=== PATIENT | female | born 2005 | race Caucasian/White ===

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

== ENCOUNTER → 2025-02-15 | Outpatient (CLI) | payer OTHER, SELFPAY ==
[2025-02-15 15:22] LABS: Bacteria 0 SEEN /hpf (None Seen); Mucous, Urine 0 SEEN /hpf (<or=2+)
[2025-02-15 16:52] LABS: Hematocrit 38.6 % (37-47); Hemoglobin 12.9 g/dL (12.0-15.0); Mean Corp Hgb Conc 33.4 g/dL (32-36); Mean Corpuscular Hgb 29.5 pg (27.0-32.0); Mean Corpuscular Volume 88.1 fL (81-99); Mean Platelet Vol. 9.9 fl (6.2-12.0); Platelet Count 302 K/mm3 (150-450); RBC Distribution Width CV 11.9 % (11.6-14.6); RBC Distribution Width SD 38.5 fl (35.1-43.9); Red Blood Count 4.38 M/mm3 (4.2-5.4); White Blood Count 5.3 K/mm3 (4.4-11.0)
[2025-02-15 16:59] LABS: Color, Urine Straw (Yellow); Glucose, Dipstick Normal (Normal); Ketone-Dipstick Negative (Negative); Leukocyte Esterase-Dipstick Negative /ul (Negative); Nitrite-Dipstick Negative (Negative); Occult Blood-Urine 25 /ul (Negative); Protein-Dipstick Negative (Negative); Urine Bilirubin Dipstick Negative (Negative); Urine Clarity Clear (Clear); Urine Urobilinogen Normal (Normal)
[2025-02-15 17:17] LABS: Hemoglobin A1c 4.9 % (<=5.6)
[2025-02-15 17:43] LABS: Red Blood Cells-Urine 0-5 SEEN /hpf (0-5); Squamous Epithelial Cells - UA 0-5 SEEN /hpf (5-10); White Blood Cells 0-5 SEEN /hpf (0-5)
[2025-02-15 17:46] LABS: ALB/GLOB Ratio 1.4 RATIO (0.9-2.4); AST(SGOT) 16 U/L (<=31); Alanine Aminotransfer ALT/SGPT 14 U/L (<=34); Albumin, Serum 4.2 g/dL (3.5-5.0); Alkaline Phosphatase 61 U/L (35-104); Anion Gap 12 (5-15); BUN 6 mg/dL (4-19); BUN/Creat Ratio 9.7 RATIO (10-20); Carbon Dioxide 18.8 mmol/L (21.0-32.0); Chloride 107 mmol/L (98-108); Creatinine, Serum 0.63 mg/dL (0.70-1.20); EST Glomerular Filtration Rate 131 (>60); Ferritin 32 ng/mL (22-378); Globulin 3.1 g/dL (2.2-4.2); Glucose 127 mg/dL (70-99); Potassium 3.7 mmol/L (3.3-5.1); Protein, Total 7.2 g/dL (5.9-8.4); Sodium Level 138 mmol/L (133-145); Thyroid Stim Hormone (TSH) 0.931 uIU/mL (0.500-4.300)
[2025-02-15 18:20] LABS: CRP 5.19 mg/L (0.0-3.0); Iron 67 ug/dL (50-170); Iron Binding Capacity,Total 381 ug/dL (250-450); Iron Binding Capacity,Unsat 314 ug/dL (228-428); Lipase 30 U/L (13-75)
[2025-02-15 18:26] LABS: Prothrombin Time (Protime)PT. 13.8 SECONDS (11.7-14.9)
[2025-02-19 15:08] LABS: Anti-Smooth Muscle ABS 32 Units (0-19)
== END | disposition home or self-care (01) ==
LOC: LAB 15:15
PROVIDERS: PCP Family Medicine; Referring Provider Family Medicine; Visit Provider Family Medicine
DX: R10.9 Unspecified abdominal pain (principal); K76.0 Fatty (change of) liver, not elsewhere classified
CPT/HCPCS: 36415; 80053; 81001; 82728; 83036; 83516; 83540; 83550; 83690; 84443; 85027; 85610; 86140

== ENCOUNTER → 2025-04-02 | Outpatient (CLI) | payer OTHER, SELFPAY | END | disposition home or self-care (01) | LOC: LABSPEC 16:24 | PROVIDERS: PCP Family Medicine; Visit Provider Nurse Practitioner Family | DX: N89.8 Other specified noninflammatory disorders of vagina (principal) | CPT/HCPCS: 87070; 87205 ==

== ENCOUNTER 2025-05-01 08:00 | Outpatient (RCR) | payer OTHER, SELFPAY ==
--- NOTE | 2025-05-01 09:05 | BH.SGPN.GN ---
Behaviors/Verbalizations/Mental Status: [] Eye contact is good. Motor activity is appropriate. Appearance is casual. Speech is Appropriate. Mood is depressed and anxious. Affect is full. Thoughts are linear and logical. No evidence of psychosis. Reviewed daily check in sheet and no reports of suicidal ideations or intent. Client Response/Progress/Benefit: [] Pt participated at times during the group discussions. Attentive. Able to identify mental health wins and healthy habits. Shared with the group that she ?drove for the first time?. 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 She elaborated on her anxiety related driving in greater detail and the motivation for her to seek her license currently. Overall her anxiety and depression continue to impact her functioning, however starting to drive is a big win for her. Benefited from group support, encouragement, and feedback. Will continue in IOP to prevent decompensation, increase healthy coping, and improve functioning. Narrative Note: []
--- NOTE | 2025-05-01 10:05 | BH.SGPN.GN ---
Behaviors/Verbalizations/Mental Status: [] Eye contact is good. Motor activity is appropriate. Appearance is casual. Speech is Appropriate. Mood is depressed and anxious. Affect is congruent. Thoughts are linear and logical. No evidence of psychosis. Client Response/Progress/Benefit: [] Pt participated in the group discussions AEB providing input and taking notes. Attentive during psychoeducation on SMART Goal Setting. Pt worked with group to identify common barriers to goal setting which included; mental health struggles, energy/motivation, limited support, change to routine, lack or resources, having unrealistic goals, and our internal expectations. Group also identified benefits of goals, which included: promotes a sense of accomplishment, it challenges oneself, can boast confidence, and can cause positive change/growth. Pt identified personal benefits to goal setting which included increased sense of self-worth. Benefited from increased awareness of mental health benefits of goals as well as psychoeducation on SMART goal criteria. Will continue in IOP to prevent decompensation/re-admission to psych unit, increase healthy coping, and improve functioning. Narrative Note: []
--- NOTE | 2025-05-01 10:30 | BH.COMM_ITS ---
Communication Note Communication with Client Communication Note: Met with patient to complete initial paperwork for admission to [facility]. No significant changes since pre-admission screening. Completed C-SSRS. No imminent danger noted. Long-standing fleeting SI with passive thoughts of overdose since middle school. Denies any SI in the past month and reports thoughts are more survival ambivalence. Shared she is afraid of dying. Thoughts last less than an hour. Able to identify protective factors (parents, ). Denies intent or plan. No access to firearms reported. Able to contract for safety. Is aware of crisis numbers. No acute change in frequency, duration, or severity of thoughts in the past year. Medication compliant. Motivated for treatment. Hx of Major Depressive Disorder. Reviewed admission with Dr. Yin with plan to admit to [facility] level of care.
--- NOTE | 2025-05-01 10:48 | BH.MDN ---
Multi-Disciplinary Note Note 30-min Individual: Time Started:: 09:08 Date: 05/01/25 Purpose of session/treatment goals addressed:: To gather information on pt's current stressors, symptoms, triggers, history, and tx goals. Another goal was to build rapport and provide Eye Contact:: Good Motor Activity:: Appropriate Appearance:: Casual Speech:: Appropriate and Soft Mood:: Anxious and Depressed Affect:: Congruent Thoughts:: Linear, Logical and No evidence of hallucinations/delusions noted Staff Interventions:: motivational interviewing, CBT techniques, strengths perspective, completed risk assessment / safety planning (cssr-s) and other (gathering psychosocial hx) Client Response:: Pt receptive to session, open to meeting with therapist. Pt reports feeling anxious about the group environment as she has not previously been in a group therapy setting. Reports that she has had individual counseling off and on since 7th grade due to depression and anxiety. Pt noted that she did not find counseling to be particularly beneficial in the past and felt she was wasting her time. Does admit that she was inconsistent with attendance and less open with therapists in the past. Reports that she is willing to give therapy another try though is somewhat hesitant given past experiences in tx. Pt noted that she has been struggling with depression and anxiety sx more in the past year and a half since leaving high school. Explained that she had been attending the [employer]; however had difficulties in making friends and feeling like she fit in, resulting in withdrawing and moving back home with her parents. Pt reports she has not kept in contact with friends from high school outside of her now . Pt has been 1.5 years and noted that she lives in an apartment with her while he attends College and they both stay with her parents during breaks. Pt noted that she felt she had been doing a good job of ?masking? her depression; however was recently approached by her mother with concerns about her mental health and referred to [facility] tx. Does endorse loss of enjoyment, apathy, hopelessness, low energy and motivation, purposelessness, ruminating thoughts and fears that ?the worst is always going to happen?, as well as increase sleeping. Pt is unsure of what exactly she would like to work on but did briefly mention improving self-esteem and general sense of purpose. Risks/Concerns:: Pt reports ambivalence towards living but denies active SI, plan, or intent. Pt future oriented and indicates protective factors. Progress Toward Goals/Plan:: Pt's 1st day of IOP tx and pt reports feeling unsure but willing to give treatment a try. Pt shared she is hoping to learn how to find a sense of purpose again. Pt plans to attend IOP three days a week. Pt's endorses apathy, loss of motivation, anhedonia, passive SI with vague thoughts of methods, worthlessness, hopelessness, isolation, and negative self-talk. Pt will continue IOP tx to prevent decompensation and maintain safety, improve daily functioning, and gain healthy coping skills. Time Stopped:: 09:26
--- NOTE | 2025-05-01 10:53 | BH.PSA ---
Development & Family of Origin Family History Family History Grandmother Breast cancer Aunt Breast cancer
--- NOTE | 2025-05-01 11:05 | BH.SGPN.GN ---
Behaviors/Verbalizations/Mental Status: [] Pt alert and oriented. Appearance is casual, hygiene is appropriate. Eye contact fair. Motor activity appropriate. Speech within normal limits. Affect is anxious. Mood is constricted. Thoughts linear, logical, no signs of hallucinations or delusions. Client Response/Progress/Benefit: [] Pt was engaged during discussion and experiential activity. Completed the worksheet challenging them to develop a personal SMART goal. Pt chose a SMART goal to I will get at least 6,000 steps a day at least 5 days a week for the next week. Believes this goal will benefit them by getting outside and moving their body. Identified obstacles such as feeling too tired, being too hot outside, and not feeling good. Pt worked to identify potential strategies to help her overcome potential barriers. Benefited from this group by developing a short-term SMART goal related to mental health. Will continue IOP to prevent decompensation, improve distress tolerance, and promote healthy coping.
--- NOTE | 2025-05-02 09:02 | BH.SGPN.GN ---
Behaviors/Verbalizations/Mental Status: [] Client alert and oriented, casual appearance. Eye contact good. Motor activity appropriate. Speech within normal limits. Affect congruent, mood irritable. Thoughts linear, logical, no signs of hallucinations or delusions. Reviewed client's symptom tracker, client scored a 2 out of 5 with 5 being severe for suicidal thoughts and a 1 out of 5 for risk to suicide. Client denies active suicidal ideation and reports ability to keep herself safe. Client Response/Progress/Benefit: [] Client responded well to session AEB listening to others and sharing thoughts/feelings. Per daily symptom tracker client's scored a 5 out of 5 for depression and a 2 out of 5 for anxiety. Client reported mental positive as having a positive first day in IOP yesterday. Client noted additional months of positive as utilizing opposite action yesterday. Client noted current stressor as having to deal with her [id number] who in her opinion can be challenging to deal with because he often does not respect boundaries and is not nice. Appeared to benefit from support from peers. Will continue IOP tx to improve distress tolerance, challenge negative thoughts, and prevent decompensation. Narrative Note: []
--- NOTE | 2025-05-02 09:10 | BH.NA ---
Physical Data Height/Weight Height: 5 ft 7 in Weight:: 68.039 kg Weight in Pounds: 150.0 lbs Medical Problems/History Family History Family History Grandmother Breast cancer Aunt Breast cancer Nutritional Screen Height/Weight Height: 5 ft 7 in Weight:: 68.039 kg Weight in Pounds: 150.0 lbs Weight Measurement Method: Estimated by Patient Nutrition Screening Normal Weight: 170 kg Normal/Usual Weight in Pounds: 374.8 lbs Have you lost weight without trying: Yes Have you been eating poorly because of a decreased appetite: No Recently been on tube feeds, TPN, or have any nutritional access device in place: No Have any large open wounds or wounds that are not healing: No Calculated Weight Change: [phone] Change in weight Score: 4 MST Screening Tool Score: 6
--- NOTE | 2025-05-02 10:15 | BH.SGPN.GN ---
Behaviors/Verbalizations/Mental Status: []Client alert and oriented, casually dressed. Eye contact good. Motor activity appropriate. Speech within normal limits. Affect congruent, mood engaged. Thoughts linear, logical, no signs of hallucinations or delusions. Client Response/Progress/Benefit: [] Pt was an active participant AEB taking notes and engaging in group activity. Connected with the topic of pitfalls and listened to group discussion on barriers that prevent from choosing a healthier path to mental wellness. Group worked together to identify examples of personal pitfalls. These examples included; shutting down, not asking for help, negative thinking patterns, avoidance, and isolation. Pt did well in the experiential activity and was able to regulate stress in healthy ways. Pt benefited from group as Pt learned to better identify potential barriers to improving mental health symptoms. Identified personal barrier of lack of motivation and making excuses. Pt will continue IOP tx to prevent decompensation, gain healthy coping skills, and improve daily functioning. Narrative Note: []
--- NOTE | 2025-05-02 11:15 | BH.SGPN.GN ---
Behaviors/Verbalizations/Mental Status: []Client alert and oriented, casually dressed and groomed. Eye contact good. Motor activity appropriate. Speech within normal limits. Affect congruent, mood depressed and anxious. Thoughts linear, logical, no signs of hallucinations or delusions. Client Response/Progress/Benefit: [] Pt receptive of session, engaged throughout AEB Pt actively listening and contributing to discussion as well as taking notes.? Pt participated in the experiential activity and did well to communicate ideas with peers and manage emotions. Pt attentive as group processed how the emotions and perspective of the group impacted the activity. Pt admitted that she wanted to give up due to impatience, but pt was able to complete the activity with peers. Group worked together to identify different coping skills to help manage pitfalls. Pt identified a pitfall they struggle with as ?negative self-talk?. Pt plans to work on their pitfall by practicing positive affirmations and perspective challenging. Benefited from identifying personal pitfalls and strategies to overcome these pitfalls. Pt will continue IOP tx to prevent decompensation, improve daily functioning, and increase coping skill repertoire. ? Narrative Note: []
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
--- NOTE | 2025-05-03 08:12 | BH.PSY.EVA_ITS ---
Initial Treatment Plan Patient Information Visit Information: ADMISSION DATE: EXPECTED LOS: 4-6 weeks
--- NOTE | 2025-05-03 08:12 | BH.DR.ITP ---
Initial Treatment Plan Patient Information Visit Information: ADMISSION DATE: EXPECTED LOS: 6-8 weeks Diagnoses:: MDD, anx nos Problems/Symptoms Problem #1:: MDD Symptom:: Intermittent thoughts of hurting self, depressed mood, anhedonia, poor energy, excessive spit sleep, crying spells Problem #2:: Anxiety Symptom:: Primarily sense of impending doom and worrying that she will be murdered or that something terrible happen
--- NOTE | 2025-05-03 08:15 | BH.NA_ITS ---
Physical Data Vital Signs Pulse Rate: 94 Blood Pressure: 150/82 Height/Weight Height: 1.75 m Weight:: 90.718 kg Weight in Pounds: 200.0 lbs Current Medication Compliance Medication Compliance Do you take your medication as prescribed?: Yes Functional Assessment Sleep Pattern Describe any problems with sleeping: Client states she had been sleeping 11 hours per day, but the last couple of days has been 8 hours. Sensory/Communication Assess Communication Problems Do you have difficulty understanding what people are saying?: No Learning Assessment Education What is your level of education?: Some College Medical Problems/History Metabolic Conditions Metabolic: Other (See comments) (Crispin's thyroiditis, PCOS) Gastrointestinal Conditions Gastrointestinal: Constipation and Other (See comments) (abdominal pain accompanied by nausea ongoing since 2020- has seen GI, on some GI medications, is having a scope done in May.) Family History Family History Grandmother Breast cancer Aunt Breast cancer Surgical History Surgical History Have you had any surgeries? If so, list type and date:: No Substance Abuse Substance Abuse Please describe substance abuse in the last 30 days:: Client denies alcohol, tobacco or substance use. Client denies regular caffeine use. Mental Status Summary Mental Status Significant Findings/Observations on Appearance and Mood:: Client is alert and oriented x 4. Client is casually groomed with good hygiene. Client is cooperative with assessment. Client makes fair eye contact. Client's voice has normal rate and volume. Client has a restricted affect. Client makes logical associations and has normal processing. Client denies delusion/hallucinations. Client denies SI. Suicide Assessment Suicidal Ideation Are you currently or have you been suicidal in the past?: Yes Suicidal Intentional Rating Scale (SIRS): Suicidal thoughts (past) (denies current SI) Physician Notification Past Psychiatric History MH Treatment Hx Past Psychiatric Medications:: 2018- Prozac, 2019- Lexapro (rapid weight gain), 2020- Zoloft. 2022- Wellbutrin. 2024- Cymbalta. Age of first mental health symptoms: Client states she first felt depressed around age 11. Client first started medication for mental health in 2018, around age 13. Client states in 2019, she was told she had avoidant personality disorder. In 2022, a provider told her she may have adjustment disorder. Describe (age, circumstance, etc) any past hospitalizations: Went to the [facility] in July 2021 for mental health but was not admitted. Current providers for mental health treatment (counselor, psychiatrist, heel caser, etc.): Linh Andrade at [facility] for therapy Fall Risk Assessment Age Age: Less than 60 Mental Status Mental Status: Willing & able to ask for assistance when needed Physical Status Physical Status: No problems Impairments Impairments: None Elimination Elimination: Continent AND independent Gait or Balance Gait or Balance: Walks independently Hx of Falls History of falls in the past 6 months: No known history Medications/Substances Psychotropics:: Antidepressants Medications/substances used within the past 24 hours or ordered to administer: 1-2 of the medications/substances listed above Total Score Total Points:: 1 RN Summary of Impressions Impressions Recommendations Impressions: Psychiatric Issues: major depressive disorder, generalized anxiety disorder Level of Care How do the client's current symptoms and functional deficits support need for this level of care?: Client was referred to IOP by her parents due to being concerned about clients mental health. Client states for the past several months, her mood has been low, she had had anhedonia, she has been having crying spells, and she has been sleeping 11 or more hours per day. Client states I thought I was doing an okay job pretending I was doing okay, but my parents and my knew I was depressed. Client denies current SI. Client states she has been on Cymbalta since February 2025 per her GI's recommendation for abdominal pain, and states she does think it is helping some with pain but states she thinks her mental health has gotten worse since she was taken off of Wellbutrin and Lexapro. IOP will promote gains and prevent further decompensation while providing social support and skills training. Nutritional Screen Height/Weight Height: 1.75 m Weight:: 90.718 kg Weight in Pounds: 200.0 lbs Weight Measurement Method: Stated by Patient Nutrition Screening Normal Weight: 86.183 kg Normal/Usual Weight in Pounds: 190.0 lbs Have you lost weight without trying: No Have you been eating poorly because of a decreased appetite: No Recently been on tube feeds, TPN, or have any nutritional access device in place: No Have any large open wounds or wounds that are not healing: No Calculated Weight Change: [id number] Change in weight Score: 1 MST Screening Tool Score: 1
[2025-05-03 08:43] VITALS: BP 150/82; PULSE 94
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
--- NOTE | 2025-05-03 10:04 | BH.SGPN.GN ---
Behaviors/Verbalizations/Mental Status: [] Eye contact is good. Motor activity is appropriate. Appearance is casual. Speech is Appropriate. Mood is depressed. Affect is congruent. Thoughts are linear and logical. No evidence of psychosis. Client Response/Progress/Benefit: [] Pt engaged participant AEB listening to others, engaging in activity, and providing feedback throughout. Attentive during psychoeducation and provided insight into obstacles that impede mental wellness. Pt shared with group current mental health reality and desired mental health reality. Identified barriers to desired reality which included difficulties with communicating boundaries and low motivation. Benefited from taking look at current mental health state and obstacles for progress. Pt to d/c from IOP today and continue IOP tx to prevent decompensation, stabilize mood, and improve functioning. Narrative Note: []
--- NOTE | 2025-05-03 11:00 | BH.SGPN.GN ---
Behaviors/Verbalizations/Mental Status: []Eye contact is good. Motor activity is appropriate. Appearance is casual. Speech is Appropriate. Mood is dysthymic. Affect is congruent. Thoughts are linear and logical. No evidence of psychosis. Client Response/Progress/Benefit: [] Pt was an engaged participant in group discussion and activity. Worked with group to identify strategies to help overcome barriers and obstacles to desired reality. Group developed strategies for the common barriers. Identified personal barriers to desired reality and choose one obstacle to work on. Pt stated wanting to work on barrier of not asking for help by using opposite action and starting with trusted people. Pt seemed to benefit from increased repertoire of healthy coping skills/strategies to overcome common barriers to moving forward. Pt is to continue IOP increase functioning, gain healthy coping skills, and improve mood stability. Narrative Note: []
--- NOTE | 2025-05-06 09:05 | BH.SGPN.GN ---
Behaviors/Verbalizations/Mental Status: [] Eye contact is good. Motor activity is appropriate. Appearance is casual. Speech is Appropriate. Mood is anxious. Affect is congruent. Thoughts are linear and logical. No evidence of psychosis. Reviewed daily check in sheet and no reports of suicidal ideations or intent. Client Response/Progress/Benefit: [] Pt participated at times during the group discussions. Attentive. Able to identify healthy habits and mental health wins. 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 Insight that this is ?good? anxiety Identified other psychosocial stressors which are impacting mood as well as continued isolation/avoidance behaviors. Reports feeling ? tired and gloomy?. Progress noted through exposure goals. Benefited from group support, encouragement, and feedback. Will continue in IOP to prevent decompensation, increase healthy coping, and improve functioning Narrative Note: []
--- NOTE | 2025-05-06 10:05 | BH.SGPN.GN ---
Behaviors/Verbalizations/Mental Status: []Pt alert and oriented, casually dressed and groomed. Eye contact good. Motor activity appropriate. Speech within normal limits. Affect congruent, mood engaged. Thoughts linear, logical, no signs of hallucinations or delusions. Client Response/Progress/Benefit: [] Pt receptive to session AEB contributing to group discussion, as well as listening attentively to others, and taking notes. Worked with group to brainstorm the positive and negative aspects of stress on physical and mental health as well as the impact of distress on performance, relationships, and mental health. Pt shared their current personal top stressors to be: driving, money, IOP, and her responsibilities. Shared when feeling overwhelmed with stress pt tends to shut down or lash out. Benefited from increased awareness of positive and negative stress as well as how stress impact individuals. Will continue IOP tx to prevent decompensation, improve daily functioning, and gain healthy coping skills. ?? Narrative Note: []
--- NOTE | 2025-05-06 11:10 | BH.SGPN.GN ---
Behaviors/Verbalizations/Mental Status: []Eye contact is fair. Motor activity is appropriate. Appearance is casual. Speech is Appropriate. Mood is anxious. Affect is congruent. Thoughts are linear and logical. No evidence of psychosis. Client Response/Progress/Benefit: [] Pt was an attentive participant in group discussions and actively engaged during experiential activity, doing well to regulate their emotions throughout the activity and work with peers. Attentive during psychoeducation on the 4 A's (Avoid, adapt, alter, accept) of coping with stress. Shared that they would benefit most from practicing altering perspective by changing language to I get to instead of I have to. Was able to identify the connection between the experiential activity and utilization of stress management skills. Benefited from increased awareness of stress management strategies. Pt will continue IOP to improve healhty coping, challenge distortions, and prevent decompensation.
--- NOTE | 2025-05-08 09:05 | BH.SGPN.GN ---
Behaviors/Verbalizations/Mental Status: [] Eye contact is good. Motor activity is appropriate. Appearance is casual. Speech is Appropriate. Mood is depressed and anxious. Affect is congruent. Thoughts are linear and logical. No evidence of psychosis. Reviewed daily check in sheet and pt reports 1/5 for suicidal thoughts/survival ambivalence and 0/5 for intent. Baseline. Client Response/Progress/Benefit: [] Pt was an active participant in group discussions. Attentive. Daily symptom tracker notes 4/5 for depression. 2/5 for anxiety. According to pt she completed her ?SMART goal? from group last week which was to walk 6,000 steps a day. Elaborated on how this was beneficial to her mental health. Increased energy and motivation. She is struggling with psychosocial stressors which are impacting mental health which she discussed in greater detail. Progress noted. Benefited from group support, encouragement, and feedback. Will continue in IOP to prevent decompensation, increase healthy coping, and improve functioning. Narrative Note: []
--- NOTE | 2025-05-08 10:10 | BH.SGPN.GN ---
Behaviors/Verbalizations/Mental Status: []Pt alert and oriented, casually dressed and groomed. Eye contact good. Motor activity appropriate. Speech within normal limits. Affect congruent, mood depressed. Thoughts linear, logical, no signs of hallucinations or delusions. Client Response/Progress/Benefit: [] Pt participated during the group discussion, providing input and remaining attentive during psychoeducation. Participated in experiential activity. Pt contributed during interactive discussion on the consequences of unhealthy expression of emotions. Worked with group to identify several consequences which included hurting relationships and isolating oneself. Contributing during interactive discussion on common potholes to effectively communicating. Identified personal communication pothole as avoiding difficult conversations. Pt was able to relate and make connections between the experiential activity and the overall topic, managing emotions through activity by using calming skills and self-talk. Benefited from increased awareness of how stress and emotions can impact one's ability to communicate. Will continue in IOP to promote use of healthy coping skills, reduce negative thinking patterns, and improve mood stability. Narrative Note: []
--- NOTE | 2025-05-10 09:00 | BH.SGPN.GN ---
Behaviors/Verbalizations/Mental Status: [] Client alert and oriented, casual appearance. Eye contact fair. Motor activity appropriate. Speech within normal limits. Affect congruent, mood tired. Thoughts linear, logical, no signs of hallucinations or delusions. Reviewed client's symptom tracker, no risk for suicidal ideation, plan, or intent. Client Response/Progress/Benefit: [] Client responded well to session AEB listening to others and sharing thoughts/feelings. Identify current stressor as not feeling well explaining that she has chronic stomach issues. Client reported mental positive as her got home today after traveling however does feel little frustrated because he might be leaving again to go somewhere with his father. Client noted additional meth positive as her [id number] was nice to her the other day. Client noted current emotion as wiped out and exhausted. Appeared to benefit from support from peers. Will continue IOP tx to improve distress tolerance, challenge distortions, and prevent decompensation. Narrative Note: []
--- NOTE | 2025-05-10 10:00 | BH.SGPN.GN ---
Behaviors/Verbalizations/Mental Status: []Pt alert and oriented, casually dressed and groomed. Eye contact good. Motor activity appropriate. Speech within normal limits. Affect congruent, mood dysthymic. Thoughts linear, logical, no signs of hallucinations or delusions. Client Response/Progress/Benefit: [] Pt was an active participant in group discussions. Attentive during psychoeducation on the CBT [place] (Thoughts, Behaviors, Emotions). Engaged in group discussion on how thoughts and behaviors can contribute to maintaining adverse feelings, such as depression, anxiety, and irritability. Completed worksheet in which pt identified obstacles and/or thoughts that are keeping them stuck. Shared obstacles that included; not feeling good enough and not trying when things get hard. Pt benefited from increased awareness of the basis of CBT therapy as well as specific thoughts that are impacting pt's progress. Will continue in IOP to promote use of healthy coping skills, improve daily functioning, and increase distress tolerance. ? Narrative Note: []
--- NOTE | 2025-05-10 11:00 | BH.SGPN.GN ---
Behaviors/Verbalizations/Mental Status: []Pt alert and oriented, casually dressed and groomed. Eye contact good. Motor activity appropriate. Speech within normal limits. Affect congruent, mood anxious and depressed. Thoughts linear, logical, no signs of hallucinations or delusions. Client Response/Progress/Benefit: [] Pt responded well to session, contributing to discussion and attentive throughout. Pt identified a negative thought that has kept them stuck. Pt's thought was I'm not good enough?. Pt reported when they think this way, pt isolates, lashes out, or shuts down. Pt worked to reframe the thought by finding more rational, realistic ways to look at the thoughts and then processed them within group setting. Pt reframed the thought to ?I have worth and value as I am?. Pt appeared to benefit from practicing challenging negative thinking with peers and gaining coping skills. Pt will continue IOP tx to promote mood stability, increase thought challenging, and further increase self-compassion. Narrative Note: [] Behaviors/Verbalizations/Mental Status: []Pt alert and oriented, casually dressed and groomed. Eye contact good. Motor activity appropriate. Speech within normal limits. Affect congruent, mood anxious and depressed. Thoughts linear, logical, no signs of hallucinations or delusions. Client Response/Progress/Benefit: [] Pt responded well to session, contributing to discussion and attentive throughout. Pt identified a negative thought that has kept them stuck. Pt's thought was I'm not good enough?. Pt reported when they think this way, pt isolates, lashes out, or shuts down. Pt worked to reframe the thought by finding more rational, realistic ways to look at the thoughts and then processed them within group setting. Pt reframed the thought to ?I have worth and value as I am?. Pt appeared to benefit from practicing challenging negative thinking with peers and gaining coping skills. Pt will continue IOP tx to promote mood stability, increase thought challenging, and further increase self-compassion. Narrative Note: []
--- NOTE | 2025-05-14 09:05 | BH.SGPN.GN ---
Behaviors/Verbalizations/Mental Status: [] Eye contact is good. Motor activity is appropriate. Appearance is casual. Speech is Appropriate. Mood is depressed and irritable. Affect is congruent. Thoughts are linear and logical. No evidence of psychosis. Reviewed daily check in sheet and pt reports 2/5 for SI/not wanting to exist and 0/5 for intent. This is baseline. Client Response/Progress/Benefit: [] Pt was an active participant in group discussions. Attentive during video on mindfulness. Daily symptom tracker notes 4/5 for depression and irritability. SI-2. Reports feeling ?frustrated? this morning as the result of not enjoying her walk this morning. Several environmental triggers led to irritability and frustration. ? It wasn?t what I was expecting?. Low frustration tolerance. Also reports an intrusive thought over the weekend while at a social event. ?what if someone shoots this up?. Put her ?on edge? and impacted her ability to be present during the event. Progress noted as she is attempting skills such as reframing/challenging. Benefited from group support, encouragement, and feedback. Will continue in IOP to prevent decompensation, increase healthy coping, and improve functioning. Narrative Note: []
--- NOTE | 2025-05-14 10:10 | BH.SGPN.GN ---
Behaviors/Verbalizations/Mental Status: []Pt alert and oriented, casual appearance. Eye contact fair. Motor activity appropriate. Speech within normal limits. Affect congruent, mood euthymic. Thoughts linear, logical, no signs of hallucinations or delusions. Client Response/Progress/Benefit: [] Pt an active participant in group discussions on defining conflict (internal/external) and possible benefits to conflict. Attentive during psychoeducation on conflict styles (avoidant, accommodating, competing, cooperative) and engaged during group discussion in which peers identified the benefits and consequences to each conflict style. Pt connected with the different conflict styles. Stated she connects most with using passive and passive-aggressive communication. Able to make connections how current style impacts mental health. Benefited from increased awareness of the impact of conflict styles in mental health. Will continue in IOP tx to increase healthy coping, challenge distorted thoughts, and prevent decompensation.
--- NOTE | 2025-05-14 11:10 | BH.SGPN.GN ---
Behaviors/Verbalizations/Mental Status: []Client alert and oriented, casually dressed and groomed. Eye contact fair. Motor activity appropriate. Speech within normal limits. Affect congruent, mood dysthymic. Thoughts linear, logical, no signs of hallucinations or delusions. Client Response/Progress/Benefit: [] Pt engaged in session AEB contributing to discussion and engaging in small group. Attentive during discussion on strategies for more effectively managing conflict in personal life. Pt noted current conflict resolution style uses the most is ?mostly accommodating that leads to avoiding.? Pt participated in small group for activity and did well practicing how to manage conflict scenarios. Pt given handout on conflict resolution skills and shared he wants to work on ?using I-statements.? Appeared to benefit from gaining strategies to help Pt better manage conflict. Will continue IOP tx improve distress tolerance, increase internal motivation, and improve daily functioning. Narrative Note: []
--- NOTE | 2025-05-15 09:05 | BH.SGPN.GN ---
Behaviors/Verbalizations/Mental Status: [] Eye contact is good. Motor activity is appropriate. Appearance is disheveled. Speech is Appropriate. Mood is depressed and irritable. Affect is congruent. Thoughts are linear and logical. No evidence of psychosis. Reviewed daily check in sheet and no reports of suicidal ideations or intent. Client Response/Progress/Benefit: [] Pt participated at times during the group discussions. Attentive. Daily symptom tracker notes 4/5 for depression and agitation as well as 3/5 for anxiety. Pt struggled to identify mental health wins and healthy habits. Reports feeling ?stressed and overwhelmed?. No trigger or ?reason? identified. Emotion for today is ?irritable?. Limited progress noted. Benefited from group support, encouragement, and feedback. Will continue in IOP to prevent decompensation, increase healthy coping, and improve functioning. Narrative Note: []
--- NOTE | 2025-05-15 10:15 | BH.SGPN.GN ---
Behaviors/Verbalizations/Mental Status: []Eye contact is good. Motor activity is appropriate. Appearance is casual. Speech is Appropriate. Mood is engaged. Affect is congruent. Thoughts are linear and logical. No evidence of psychosis. Client Response/Progress/Benefit: [] Pt receptive to session AEB listening attentively to others and taking notes. Pt attentive and contributed throughout psychoeducation on the cognitive triangle and maintenance cycles. Pt engaged during group discussion reviewing the impact of daily activities and behaviors in either reinforcing unhealthy maintenance cycles and depression or assisting in reducing symptoms (?down? vs ?up? activities). Pt participated during interactive discussion in which pt identified their own common up activities (being creative and talking with support) and down activities (isolating, doom scrolling, and not practicing self-care). Appeared to benefit from increased awareness of current behaviors and impact these have on mental health. Will continue IOP to increase distress tolerance, improve daily functioning, and improve internal motivation. Narrative Note: []
--- NOTE | 2025-05-15 11:15 | BH.SGPN.GN ---
Behaviors/Verbalizations/Mental Status: []Pt alert and oriented, casually dressed and groomed. Eye contact fair. Motor activity appropriate. Speech within normal limits. Affect congruent, mood euthymic. Thoughts linear, logical, no signs of hallucinations or delusions. Client Response/Progress/Benefit: [] Pt responded well to session, attentive and engaged in group discussions and activity. Actively engaged in continued discussion about up activities and down activities. Active participant as group discussed values and the benefits that knowing one's values can have on one's mental health. Client shared she would like to focus on strengthening her value of hobbies/recreation by using opposite action to sew within the next week. Benefited from increased awareness of their up activities and how incorporating their values into behavioral activation goals can positively impact mental health. Will continue in IOP to challenge distortions, promote use of healthy coping skills, and prevent decompensation.
--- NOTE | 2025-05-16 10:10 | BH.SGPN.GN ---
Behaviors/Verbalizations/Mental Status: [] Eye contact is fair. Motor activity is appropriate. Appearance is casual. Speech is Appropriate. Mood is euthymic. Affect is congruent. Thoughts are linear and logical. No evidence of psychosis. Client Response/Progress/Benefit: [] Pt engaged in session AEB listening attentively to others and providing input throughout. Pt engaged in activity, able to connect how it can be uncomfortable and difficult to practice acceptance when situations are out of one?s own control. Identified what they are struggling to accept in personal life. Worked with peer group to define acceptance and identify the benefits that acceptance can bring. Benefits included; reduce stuckness, reduced stress, helps one to focus on situations we can change, and decreased negative self-talk. Seemed to benefit from increased awareness of the meaning as well as the importance of acceptance. Will continue in IOP to improve emotion regulation, challenge distortions, and prevent decompensation.
--- NOTE | 2025-05-16 11:15 | BH.SGPN.GN ---
Behaviors/Verbalizations/Mental Status: []Pt alert and oriented, casually dressed and groomed. Eye contact good. Motor activity appropriate. Speech within normal limits. Affect congruent, mood content. Thoughts linear, logical, no signs of hallucinations or delusions. Client Response/Progress/Benefit: [] Pt responded well to session AEB taking notes and contributing to discussion throughout. Pt engaged as group continued discussion on acceptance and the mental health benefits of practicing acceptance. Pt and peers identified what makes acceptance challenging and pt completed a self-reflection exercise on what is hard to accept in pt's life. Pt identified something that is currently hard to accept as her [id number] being a permanent part of her life. Client stated by not accepting this it leads to anxiety, anger, and stress. Group identified strategies to increase acceptance. Pt noted wanting to work on trying to find ways to challenge her perspective as a strategy for improving acceptance in this area. Pt appeared to benefit from gaining insight and learning strategies to increase acceptance. Pt will continue IOP tx to improve view of self, increase mood stability, and prevent decompensation. Narrative Note: []
--- NOTE | 2025-05-16 15:29 | BH.MDN ---
Multi-Disciplinary Note Note 30-min Individual: Time Started:: 09:15 Date: 05/16/25 Purpose of session/treatment goals addressed:: To address current stressors and discuss strategies to help cope with these stressors. Another goal was to review homework and begin discussing healthy communication skills. Eye Contact:: Good Motor Activity:: Appropriate Appearance:: Casual Speech:: Appropriate Mood:: Irritable and Depressed Affect:: Congruent Thoughts:: Linear, Logical and No evidence of hallucinations/delusions noted Staff Interventions:: thought challenging, motivational interviewing, psychoeducation on: (healthy boundary setting, communication) and CBT techniques Client Response:: Pt receptive to session, open to meeting with therapist. Pt reports feeling somewhat stressed this morning as she and her had a conflict due to pt not wanting to be intimate as often as he does. Pt reports that she has tried to explain to him that she does not feel comfortable being intimate while staying in her parents house; however, her continues to push this boundary. Reports feeling guilty when rejecting his attempts at intimacy. Receptive of discussion on boundaries, ways boundaries can continue to change as mental health changes, and reviewing the importance of communicating these within her relationship. Pt did well to identify that her guilt may be inappropriate and validated her boundary of not being intimate in her parents? home. Pt went on to describe ongoing frustrations with her [id number], explaining that recently learned of their marriage, and although he did not respond as negatively as she had expected, he is not supportive of it. Reports that he expressed concerns regarding the marriage with her and shared fears that pt is ?trying to trap him in the relationship?. Pt noted feeling hurt, angry, and disappointed. Described hurt and anger towards her [id number], as well as her for not challenging her [id number] or establishing a boundary with him. Pt expressed concern that her ?s difficulties setting boundaries with his father is going to create a wedge in their relationship. Stated that while she has attempted to encourage him to set and maintain boundaries, she has not expressed her concerns regarding the impact it may have on their relationship. Identifies that not communicating these concerns may stem from fear. Expressed a desire to begin working on more effectively communicating her emotions with her . Reports willingness to write out some of her bullet points regarding this concern in preparation for having a conversation with her about it. Pt additionally identified a desire to increase support outside of her , as she has limited supports in the area. Risks/Concerns:: Pt denies any suicidal ideation, plan, or intent as of this date. Progress Toward Goals/Plan:: Progress variable. Pt reports finding IOP groups and individual session to be helpful and she is learning helpful information. Pt reports finding setting to be supportive; however, admits to struggling with implementing skills outside of treatment environment. Shared struggling to engage in healthy activities or hobbies as she does not know who she is or what she enjoys. Feels lost as a result. Discussed relying on her parents and for a sense of purpose and connection. Does indicate a desire to develop more independence but struggles with internal motivation to do so. Recommended continued IOP tx to improve mood stability, develop the relationship with herself and prevent decompensation. Time Stopped:: 09:45
--- NOTE | 2025-05-22 09:05 | BH.SGPN.GN ---
Behaviors/Verbalizations/Mental Status: [] Eye contact is good. Motor activity is appropriate. Appearance is casual. Speech is Appropriate. Mood is depressed. Affect is congruent. Thoughts are linear and logical. No evidence of psychosis. Reviewed daily check in sheet and no reports of suicidal ideations or intent. Client Response/Progress/Benefit: [] Pt was an active participant in group discussions. Attentive. Pt reports increased struggles with increased fatigue and isolation. Limited energy and reduced self-care as well as healthy coping strategies. Feels ?tired and down?. Responded well to feedback and support from peers to reduce impact of struggles. Plan to start a new creative project and gathered feedback from peers on how to get engaged. Regression noted. Benefited from group support, encoura Narrative Note: []
--- NOTE | 2025-05-22 10:10 | BH.SGPN.GN ---
Behaviors/Verbalizations/Mental Status: [] Pt alert and oriented, casually dressed and groomed. Eye contact good. Motor activity appropriate. Speech within normal limits. Affect congruent. mood dysthymic and anxious. Thoughts linear, logical, no signs of hallucinations or delusions. Client Response/Progress/Benefit: [] Pt was an engaged participant AEB listening attentively to others, taking notes, and providing feedback in group discussions. Attentive during psychoeducation AEB by note taking. Pt worked along with peers in groups to define inappropriate guilt and appropriate guilt. Group worked together to provide examples of both inappropriate and appropriate guilt. Group identified a lashing out and breaking something as appropriate guilt examples. Group identified setting a boundary and needing help as having inappropriate guilt about. Pt able to connect impact inappropriate guilt can have on MH and overall functioning. Noted that it has negatively impacted her ability to advocate for her needs within relationships. Benefited from increased awareness of guilt and the differences between appropriate and inappropriate guilt. Pt to continue IOP tx to prevent decompensation, gain healthy coping skills, and increase communication and self-advocacy skills. Narrative Note: []
--- NOTE | 2025-05-22 10:10 | BH.SGPN.GN ---
Behaviors/Verbalizations/Mental Status: [] Pt alert and oriented, casually dressed and groomed. Eye contact good. Motor activity appropriate. Speech within normal limits. Affect congruent, mood anxious and dysthymic. Thoughts linear, logical, no signs of hallucinations or delusions. Client Response/Progress/Benefit: [] Pt participated in group discussions. Attentive during psychoeducation on the CBT [place] (Thoughts, Behaviors, Emotions). Engaged in group discussion on how thoughts and behaviors can contribute to maintaining adverse feelings, such as depression, anxiety, and irritability. Completed worksheet in which pt identified obstacles and/or thoughts that are keeping them stuck. Shared obstacles that included; negative self-talk, shutting down, fear of rejection. Pt benefited from increased awareness of the basis of CBT therapy as well as specific thoughts that are impacting pt's progress. Will continue in IOP to prevent decompensation, increase healthy coping, and improve functioning. Narrative Note: []
--- NOTE | 2025-05-23 09:00 | BH.SGPN.GN ---
Behaviors/Verbalizations/Mental Status: [] Eye contact is good. Motor activity is appropriate. Appearance is casual. Speech is Appropriate. Mood is dysthymic and anxious. Affect is congruent. Thoughts are linear and logical. No evidence of psychosis. Reviewed daily check in sheet and no reports of suicidal ideations or intent. Client Response/Progress/Benefit: [] Pt was an active participant in group discussions. Attentive. Did well to identify 2 mental health wins including using opposite action to challenge herself to practice mindfulness and sit in the backyard for an hour without scrolling on her phone. Described feeling relaxed and accomplished as a result. Additional win noted as following through with wearing clothes she likes rather than sweatpants. Noted feeling more confident. Current stressor identified as struggling with personalization on her walk to group this morning. Did well to normalize and challenge these thoughts. Responded well to group support. Benefited from group support, encouragement, and feedback. Will continue in IOP to prevent decompensation, promote mood stability, and increase confidence. Narrative Note: []
--- NOTE | 2025-05-23 10:00 | BH.SGPN.GN ---
Behaviors/Verbalizations/Mental Status: []Pt alert and oriented, neatly dressed and groomed. Eye contact good. Motor activity appropriate. Speech within normal limits. Affect congruent, mood euthymic. Thoughts linear, logical, no signs of hallucinations or delusions. Client Response/Progress/Benefit: [] Pt was an active participant in group discussion and experiential activity. Attentive during psychoeducation on resilience and provided input throughout. Participated in interactive discussion with peers on the definition of resilience and where it comes from. Group identified that resiliency can be impacted by; past experiences, upbringing, and personality traits. Able to relate experiential activity of group juggle to topics of resilience. Worked with peers in small group in which they identified factors that contribute to resilience and did well providing ideas. Benefited from increased awareness of resilience and the factors that contribute to building resilience. Will continue in IOP tx to increase distress tolerance skills, reduce negative thinking, and improve internal motivation. ?? Narrative Note: []
--- NOTE | 2025-05-23 11:00 | BH.SGPN.GN ---
Behaviors/Verbalizations/Mental Status: [] Eye contact is good. Motor activity is appropriate. Appearance is casual. Speech is Appropriate. Mood is anxious. Affect is congruent. Thoughts are linear and logical. No evidence of psychosis. Client Response/Progress/Benefit: [] Pt responded well to session AEB completing the resilience worksheet provided. Pt actively participated in the discussion and worked cooperatively with group to identify strategies to enhance each of the components discussed. Pt was able to identify resiliency traits they already possess as well as areas related to resilience to focus on in the future which included nurturing a positive view of myself. Pt seemed to benefit from discussing strategies for improving personal resilience and identifying resilience traits Pt already possesses. Will continue IOP tx to prevent decompensation, increase healthy coping, and improve functioning. Narrative Note: []
--- NOTE | 2025-05-24 09:00 | BH.SGPN.GN ---
Behaviors/Verbalizations/Mental Status: [] Pt alert and oriented, neatly dressed and groomed. Eye contact good. Motor activity appropriate. Speech within normal limits. Affect constricted, mood anxious. Thoughts linear, logical, no signs of hallucinations or delusions. Reviewed pt?s symptom tracker, no risk for suicidal ideation, plan, or intent 05/24/25. Client Response/Progress/Benefit: [] Pt was an active participant in group discussions. Attentive. Able to identify mental health wins including ?I?ve been really consistent with my hygiene habits and I?ve been walking more and getting up early. ?Pt's stressor today is ?my binge eating has been coming back and I thought I overcame that.? The group offered pt suggests to manage this stressor and emotional support which pt reported was helpful. Pt is feeling ?excited and nervous.? this morning. Pt receptive to feedback from peers. Benefited from group support, encouragement, and feedback. Progress noted. Will continue IOP tx to increase distress tolerance skills, improve internal motivation, and reduce avoidance. ?? Narrative Note: []
--- NOTE | 2025-05-24 10:10 | BH.SGPN.GN ---
Behaviors/Verbalizations/Mental Status: []Eye contact is good. Motor activity is appropriate. Appearance is casual. Speech is Appropriate. Mood is content. Affect is congruent. Thoughts are linear and logical. No evidence of psychosis. Client Response/Progress/Benefit: []Pt was an active participant in group discussion. Engaged and attentive during psychoeducation and interactive discussion on coping skills, why people use unhealthy coping skills, how to replace unhealthy coping skills, and internal vs external coping skills. Attentive as peers came up with list of unhealthy coping skills. Pt reported personally, they tend to either sleep or avoid. Group discussed the effects of maladaptive coping skills on mental health. Benefited from increased understanding of unhealthy coping skills and the need for developing healthy internal and external coping skills. Actively participated during experiential group activity and was able to related this activity to group topic. Will continue in IOP to promote healthy thinking patterns, apply healthy coping skills, and promote mood stability. Narrative Note: []
--- NOTE | 2025-05-24 11:10 | BH.SGPN.GN ---
Behaviors/Verbalizations/Mental Status: [] Pt alert and oriented, casual in appearance. Eye contact fair. Motor activity appropriate. Speech within normal limits. Affect congruent, mood euthymic. Thoughts linear, logical, no signs of hallucinations or delusions. Client Response/Progress/Benefit: [] Pt did not engage in group discussions however was attentive AEB taking notes, and listening attentively to others. Group discussed the different categories of coping skills which included distraction, emotional release, grounding, self-love, and thought challenging. Pt participated in creating a coping skills ?menu? from the different categories of coping skills. Pt's coping skill menu included: Getting out of her house, working out, deep breathing, affirmations, and questioning her distortions.. Appeared to benefit from increasing repertoire of healthy coping skills. Will continue IOP to challenge negative thoughts, consistently apply healthy coping skills, and prevent decompensation.
== END 2025-05-26 23:59 ==
LOC: BHIOP 08:00
PROVIDERS: PCP Family Medicine; Referring Provider Internal Medicine; Visit Provider Internal Medicine
DX: F33.2 Major depressive disorder, recurrent severe without psychotic features (principal)
CPT/HCPCS: S9480; 90832; 90837; 90853

== ENCOUNTER 2025-05-28 07:15 | Outpatient (RCR) | payer OTHER, SELFPAY ==
--- NOTE | 2025-06-04 09:00 | BH.SGPN.GN ---
Behaviors/Verbalizations/Mental Status: [] Pt alert and oriented, neatly dressed and groomed. Eye contact good. Motor activity appropriate. Speech within normal limits. Affect constricted, mood calm. Thoughts linear, logical, no signs of hallucinations or delusions. Reviewed pt?s symptom tracker, no risk for suicidal ideation, plan, or intent 06/05/25. Client Response/Progress/Benefit: []Pt was an active participant in group discussions. Attentive. Able to identify mental health wins including ?advocating for myself and having a good time at the fair.? Pt's stressor today is ?I had to have a difficult conversation with my and I worry that I?m being too pushy.? The group offered pt suggests managing this stressor and emotional support which pt reported was helpful. Pt is feeling ?tired? this morning. Pt receptive to feedback from peers. Benefited from group support, encouragement, and feedback. Progress noted. Will continue IOP tx to reinforce healthy coping skills combat distortions, and improve internal motivation. Narrative Note: []
--- NOTE | 2025-06-04 10:15 | BH.SGPN.GN ---
Behaviors/Verbalizations/Mental Status: [] Eye contact is good. Motor activity is appropriate. Appearance is casual. Speech is Appropriate. Mood is anxious. Affect is congruent. Thoughts are linear and logical. No evidence of psychosis. Client Response/Progress/Benefit: [] Pt engaged in session AEB client listening attentively to peers and providing input. Attentive and contributed to discussion as group worked on defining?self-confidence?and identifying benefits of?self-confidence which included; increase vickey/engagement, improved quality of relationships, improved problem solving, confidence to take risks, and increased sense of self-worth. Also participated during interactive discussion on factors that impact one's self confidence such as trauma, upbringing, economic status, and current/past relationships. Benefited from increased education on?self-confidence?and what effects it. Pt will continue IOP to prevent decompensation, improve functioning, increase healthy coping, and provide support. Narrative Note: []
--- NOTE | 2025-06-04 11:10 | BH.SGPN.GN ---
Behaviors/Verbalizations/Mental Status: [] Client alert and oriented, casually dressed and groomed. Eye contact good. Motor activity appropriate. Speech within normal limits. Affect congruent, mood anxious. Thoughts linear, logical, no signs of hallucinations or delusions. Client Response/Progress/Benefit: [] Pt engaged in session AEB client listening attentively to peers and providing input. Attentive and contributed to discussion as group worked on identifying thought patterns and behaviors that negatively affect self-confidence. Pt identified behaviors that affect their confidence as: comparing and negative self-talk. Engaged in confidence building activity and worked with the group to identify strategies for improving self-confidence. Pt identified plans to begin wearing clothes she likes as a means of improving own self-confidence. Benefited from increased education on self-confidence building skills. Pt will continue IOP tx to increase self-confidence, improve emotional regulation skills, and prevent decompensation. Narrative Note: []
--- NOTE | 2025-06-05 09:00 | BH.SGPN.GN ---
Behaviors/Verbalizations/Mental Status: [] Eye contact is good. Motor activity is appropriate. Appearance is casual. Speech is Appropriate. Mood is content. Affect is congruent. Thoughts are linear and logical. No evidence of psychosis. Reviewed daily check in sheet and pt reports 0/5 for suicidal thoughts and 0/5 for intent. Client Response/Progress/Benefit: [] Pt participated when prompted. Attentive. Daily symptom tracker notes 3/5 for anxiety, 2/5 for irritability and 4/5 for depression. Emotion for today is tired but hopeful. Mental health wins reported to be intentionally practicing gratitude while at the fair with her dad and getting a lot of exercise as well. Additional win noted as continuing to make progress in looking for a part-time job for when she returns to [place]. Current stressor noted as ongoing issues with setting boundaries with her [id number]. Progress noted per pt report. Benefited from group support, encouragement, and feedback. Will continue in IOP to prevent decompensation, improve mood stability, and increase healthy coping. Narrative Note: []
--- NOTE | 2025-06-05 10:10 | BH.SGPN.GN ---
Behaviors/Verbalizations/Mental Status: []Pt alert and oriented, casually dressed and groomed. Eye contact good. Motor activity appropriate. Speech within normal limits. Affect congruent, mood euthymic. Thoughts linear, logical, no signs of hallucinations or delusions. Client Response/Progress/Benefit: []Pt was an active participant in group discussion and activity. Attentive during psychoeducation. Along with peers, pt was able to identify barriers to taking action in their life. Identified several symptoms and stressors that pt feels are holding them back from progress. Pt noted apathy keeps her from taking action because she has negative thoughts that nothing is worth it. Pt able to identify how these things have negatively impacted progress. Benefited from increased self-awareness of obstacles. Pt will continue IOP to increase consistent use of healthy coping skills, manage negative thoughts, and prevent decompensation.
--- NOTE | 2025-06-05 11:10 | BH.SGPN.GN ---
Behaviors/Verbalizations/Mental Status: []Pt alert and oriented, neatly dressed and groomed. Eye contact good. Motor activity appropriate. Speech within normal limits. Affect congruent, mood calm. Thoughts linear, logical, no signs of hallucinations or delusions. Client Response/Progress/Benefit: [] Pt responded well to session, taking notes and participating in worksheet discussion. Pt connected with the discussion on action steps, and this helped pt learn how to set goals differently. Pt set a SMART goal that pt will ?tell myself three things that made me happy or grateful each night before bed.? Pt shared asking her supports to hold her accountable will be beneficial. Appeared to benefit from identifying a small goal to benefit mental health. Pt is to continue IOP tx to promot use of healthy coping skills, improve daily functioning, and increase motivation. Narrative Note: []
--- NOTE | 2025-06-07 09:05 | BH.SGPN.GN ---
Behaviors/Verbalizations/Mental Status: [] Eye contact is good. Motor activity is appropriate. Appearance is casual. Speech is Appropriate. Mood is anxious. Affect is congruent. Thoughts are linear and logical. No evidence of psychosis. Reviewed daily check in sheet and no reports of suicidal ideations or intent. Client Response/Progress/Benefit: [] Pt participated at times during the group discussions. Attentive. Daily symptom tracker notes 3/5 for depression and 2/5 for anxiety. Pt continues to work on anxiety related to driving with goal to obtain her license. Has never obtained license due to anxiety, however is close completing her driving hours and taking the test. Had a crucial conversation with her recently and feels thier relationship as well as trust have improved. Shared recent psychosocial stressors however overall improved functioning. Progress noted. Benefited from group support, encouragement, and feedback. Will continue in IOP to prevent decompensation, stabilize mood, and improve functioning. Narrative Note: []
--- NOTE | 2025-06-07 10:07 | PCM.BH.PN_ITS ---
Intake Vital Signs 05/17/25 10:05 06/07/25 10:07 Height 1.75 m 1.75 m Intake Visit Reasons: f/u MDD, anxiety Allergies No Known Allergies Allergy (Verified 05/31/25 09:45) Medications ?Medication ?Instructions ?Recorded ?Confirmed ?Type docosahexaenoic acid 200 mg 200 mg PO DAILY 10/01/24 0 05/31/25 History capsule ( DHA) desogestrel 0.15 mg-ethinyl 1 tab PO QDAY #84 tabs 05/31/25 Rx estradiol 0.03 mg tablet (Apri) ascorbic acid (vitamin C) 500 mg 500 mg PO DAILY 04/0205/31/25 History capsule ferrous sulfate 325 mg (65 mg 325 mg PO QDAY 04/02/25 05/30/25 History iron) tablet (FeroSul) polyethylene glycol 3350 17 4 g PO QDAY 04/02/2505/31 History gram/dose oral powder (Miralax) dicyclomine 10 mg capsule 10 mg PO BID PRN abdominal p ain 04/24/25 05/31/25 Rx #20 caps duloxetine 20 mg capsule,delayed 40 mg PO QDAY 04/24/ 5 05/31/25 History release omeprazole 20 mg capsule,delayed 20 mg PO QDAY #30 cap s 04/24/25 05/31/25 Rx release bupropion HCl 150 mg 24 hr tablet, 150 mg PO DAILY #30 tabs 05/03/25 05/31/25 Rx extended release (Wellbutrin XL) levothyroxine 50 mcg tablet 50 mcg PO DAILY 05/03/25 0 05/31/25 History (Synthroid) HPI () History of Present Illness History provided by: patient HPI: -Current psychiatric medications: Cymbalta 40 mg, Wellbutrin 150 mg XR, sleep same as it had been, stays tired in the morning, very hungry, stress eating, possibly sress eating, eating unhealthy. On control. Decrased SI, no HI, No AH/VH. -SUBJECTVE: []. Mood is []. Sleeping []. [] appetite. [] crying spells. [] hopelessness. [] thoughts of harming self []. No thoughts of harming others endorsed. AH/VH []. [] tolerating medications without side effects No side ffects Visit Details Comments: Spent a total of [ ] minutes on the date of the service which included [ ].
--- NOTE | 2025-06-07 10:07 | PCM.BH.PN ---
Intake Vital Signs 05/17/25 10:05 06/07/25 10:07 Height 1.75 m 1.75 m Intake Visit Reasons: f/u MDD, anxiety Allergies No Known Allergies Allergy (Verified 05/31/25 09:45) Medications ?Medication ?Instructions ?Recorded ?Confirmed ?Type docosahexaenoic acid 200 mg 200 mg PO DAILY 10/01/24 05/31/25 History capsule ( DHA) desogestrel 0.15 mg-ethinyl 1 tab PO QDAY #84 tabs 03/15/25 05/31/25 Rx estradiol 0.03 mg tablet (Apri) ascorbic acid (vitamin C) 500 mg 500 mg PO DAILY 04/02/25 05/31/25 History capsule ferrous sulfate 325 mg (65 mg 325 mg PO QDAY 04/02/25 05/30/25 History iron) tablet (FeroSul) polyethylene glycol 3350 17 4 g PO QDAY 04/02/25 05/31/25 History gram/dose oral powder (Miralax) dicyclomine 10 mg capsule 10 mg PO BID PRN abdominal pain 04/24/25 05/31/25 Rx #20 caps duloxetine 20 mg capsule,delayed 40 mg PO QDAY 04/24/25 05/31/25 History release omeprazole 20 mg capsule,delayed 20 mg PO QDAY #30 caps 04/24/25 05/31/25 Rx release levothyroxine 50 mcg tablet 50 mcg PO DAILY 05/03/25 05/31/25 History (Synthroid) bupropion HCl 150 mg 24 hr tablet, 150 mg PO DAILY #30 tabs 06/07/25 Rx extended release (Wellbutrin XL) HPI () History of Present Illness History provided by: patient Chief complaint: Follow-up MDD HPI: -Current psychiatric medications: Cymbalta 40 mg, Wellbutrin 150 mg XR -SUBJECTVE: Reports mood is improving, decrease SI, no present suicidal ideation, no plans to harm self, still stays tired in the morning and sleeps the same as it has been but no worsening or significant change. Has been stress eating and very hungry and eating more unhealthily. Does not think that she is , is on control and significant other uses condoms. Was advised to take her control continuous so she did not have a period last month but again confirmed that she does not believe she is . Advised that she continue to monitor this. Denies any HI, no AH or VH. Tolerating the Wellbutrin well and is happy where this medication is at currently. No side effects noted. Does note that if she excellently forgets her Cymbalta she will get brain fog which will resolve when she takes it again. Advised to take this consistently and then if she ever needs to go off she would likely benefit from going down to Cymbalta 20 before discontinue entirely. Exam Mental Status Exam- Psych () Appearance casually dressed and no apparent distress Attitude cooperative and calm Activity/Motor Behavior MSE activity/motor behavior finding no adventitious movements and other (Poor eye contact, closed body language) Speech regular rate and other (Slightly decreased volume) Mood euythmic Affect restricted Thought Process linear and logical Thought Content no delusions and no hallucinations Suicidal Ideation none Homicidal Ideation none Attention intact Concentration intact Sensorium/Orientation awake and alert Memory/Cognition intact Insight fair Judgement fair Assessment & Plan () Assessment & Plan (1) MDD (major depressive disorder), recurrent severe, without psychosis: Plan: Improving with Wellbutrin, no side effects noted, feels that the combination of this with the Cymbalta is helpful and would like to continue at current dose which is reasonable. Will continue current medication Medications: Refilled bupropion HCl XL 150 mg PO DAILY 30 tabs 1RF Visit Details Comments: Spent a total of [ ] minutes on the date of the service which included [ ]. Charges/Coding Behavior Health Behavior Health EST Pt E/M: 99549 Est Pt Level IV
--- NOTE | 2025-06-07 10:15 | BH.SGPN.GN ---
Behaviors/Verbalizations/Mental Status: []Pt alert and oriented, neatly dressed and groomed. Eye contact good. Motor activity appropriate. Speech within normal limits. Affect congruent, mood euthymic. Thoughts linear, logical, no signs of hallucinations or delusions. Client Response/Progress/Benefit: [] Pt was attentive during psychoeducation and participated in group activity. Group discussed what influences a person?s perspective and how perspective can positively or negatively impact mental health treatment. Group identified several factors that can influence perspective which include; mood, current stressors, sleep, health, hunger, and several others.?Pt appeared to benefit from increasing awareness of different perspectives and how they can affect mental health. Pt noted that their perspective today is ?more positive. I?m forming bonds, using skills, and I can see positive change.? Pt will continue IOP tx to promote use of healthy coping skills, combat distortions, and improve internal motivation. Narrative Note: []
--- NOTE | 2025-06-07 11:10 | BH.SGPN.GN ---
Behaviors/Verbalizations/Mental Status: []Pt alert and oriented, casually dressed and groomed. Eye contact good. Motor activity appropriate. Speech within normal limits. Affect congruent, mood euthymic and stressed. Thoughts linear, logical, no signs of hallucinations or delusions. Client Response/Progress/Benefit: [] Pt was attentive and contributed to group discussion. Pt worked with group to identify strategies that can help with challenging negative perspective. Pt stated they can practice looking at positive outcomes to challenge negative perspective. Pt completed strengths exploration worksheet, identifying personal strengths. Pt able to acknowledge how these strengths are helping pt and can continue to help pt in mental health journey. Pt identified wanting to work on utilizing his strength of kindness to be more understanding with himself and improve his mental health. Benefited from identifying personal strengths and strategies for enhancing use of identified strengths. Pt will continue IOP tx to increase application of healthy coping skills, improve distress tolerance skills, and improve daily functioning.
--- NOTE | 2025-06-11 09:05 | BH.SGPN.GN ---
Behaviors/Verbalizations/Mental Status: [] Pt alert and oriented, neatly dressed and groomed. Eye contact good. Motor activity appropriate. Speech within normal limits. Affect constricted, mood frustrated. Thoughts linear, logical, no signs of hallucinations or delusions. Reviewed pt?s symptom tracker, no risk for suicidal ideation, plan, or intent 06/11/25. Client Response/Progress/Benefit: []Pt was an active participant in group discussions. Attentive. Able to identify mental health wins including ?I really wanted to cancel and say my alarm didn?t go off, but I didn?t? and pt drove a lot this weekend. Pt's stressor today is ?I haven?t heard back about my colonoscopy and my driving test is this week.? The group offered pt suggests to manage this stressor and emotional support which pt reported was helpful. Pt is feeling ?tired.? this morning. Pt receptive to feedback from peers. Benefited from group support, encouragement, and feedback. Progress noted. Will continue IOP tx to reinforce healthy coping skills, increase self-confidence, and improve daily functioning. Narrative Note: []
--- NOTE | 2025-06-11 10:10 | BH.SGPN.GN ---
Behaviors/Verbalizations/Mental Status: []Eye contact is fair. Motor activity is appropriate. Appearance is casual. Speech is Appropriate. Mood is content. Affect is constricted. Thoughts are linear and logical. No evidence of psychosis. Client Response/Progress/Benefit: []Pt was an active participant in group discussions. Attentive during psychoeducation on the 4 communication styles (Passive, Passive-Aggressive, Aggressive, and Assertive) and the obstacles to effective communication. Contributed during interactive discussion on the benefits of communicating effectively. Worked well with peers to identify the benefits and disadvantages to the different communication styles. Pt believes that they are primarily passive and passive-aggressive but can be aggressive when feels needs are not met. Benefited from increased understanding of communication styles and how these can impact effective communication. Will continue in IOP to improve mood stability, challenge negative thoughts, and prevent decompensation. Narrative Note: []
--- NOTE | 2025-06-11 11:10 | BH.SGPN.GN ---
Behaviors/Verbalizations/Mental Status: []Pt alert and oriented, casually dressed and groomed. Eye contact good. Motor activity restless. Speech within normal limits. Affect congruent, mood euthymic. Thoughts linear, logical, no signs of hallucinations or delusions. Client Response/Progress/Benefit: [] Pt responded well to session AEB pt listening attentively to others and providing input during group discussion on the pay offs and costs of the different communication styles. Pt able to connect how current communication style impacts mental health. Connected with peers? comments about the importance of using assertive communication. Pt seemed to benefit from increasing awareness of healthy strategies to improve communication and worked with peers during the experiential activity to practice assertive communication. Pt engaged in self-reflection activity in which they identified what they want to work on to improve communication. Will continue IOP tx to increase consistent use of healthy coping skills, challenge negative thoughts, and prevent decompensation.
--- NOTE | 2025-06-17 09:00 | BH.SGPN.GN ---
Behaviors/Verbalizations/Mental Status: [] Pt alert and oriented, casually dressed and groomed. Eye contact good. Motor activity appropriate. Speech within normal limits. Affect congruent, mood euthymic. Thoughts linear, logical, no signs of hallucinations or delusions. Reviewed pt?s symptom tracker, no risk for suicidal ideation, plan, or intent. Client Response/Progress/Benefit: []Pt was an active participant in group discussions. Attentive. Able to identify mental health wins as graduating this week from IOP, however noted some worries about not having the support of the program. Noted additional positive as getting wedding rings with her after being for over a year. Pt's stressor today is not passing her driving test. The group offered pt encouragement and emotional support which pt reported was helpful. Pt is feeling content? this morning. Pt receptive to feedback from peers. Progress noted. Benefited from group support, encouragement, and feedback. Will continue IOP tx to challenge negative thoughts, increase healthy coping, and prevent decompensation.
--- NOTE | 2025-06-17 10:15 | BH.SGPN.GN ---
Behaviors/Verbalizations/Mental Status: []Pt alert and oriented, casually dressed and groomed. Eye contact good. Motor activity appropriate. Speech within normal limits. Affect congruent, mood calm. Thoughts linear, logical, no signs of hallucinations or delusions. Client Response/Progress/Benefit: [] Pt participated during small group discussions. Attentive during psychoeducation about defense mechanisms. Showed engagement during small group discussions and helped group identify which defense mechanisms were maladaptive, adaptive, or ?somewhere in the foley.? Pt worked with small group on identifying how each defense mechanism can impact mental health and gave examples. Group was mostly educational and pts discussed the different types of defense mechanisms. Pt reported benefits from identifying examples of different defense mechanisms and normalizing why they are used. Seemed to benefit from gaining awareness about the different defense mechanisms. Pt to continue IOP tx to promote use of healthy coping skills, increase self-care practices, and improve distress tolerance skills. ? Narrative Note: []
--- NOTE | 2025-06-17 11:15 | BH.SGPN.GN ---
Behaviors/Verbalizations/Mental Status: []Pt alert and oriented, casually dressed and groomed. Eye contact good. Motor activity appropriate. Speech within normal limits. Affect congruent, mood content. Thoughts linear, logical, no signs of hallucinations or delusions. Client Response/Progress/Benefit: [] Pt responded well to session, participating in activity and small group discussion. Group reviewed the rest of the defense mechanisms and discussed how these are adaptive, maladaptive, or somewhere in the foley. Pt's defense mechanisms included denial and rationalization. Shared that these reinforce unhealthy coping mechanisms. Pt listened to lean facilitator teach different skills to help pt?s cope with or change their defense mechanisms. Pt appeared to benefit from gaining insight to the different defense mechanisms and learning coping skills. Shared wanting to begin practicing more awareness of when using these defense mechanisms. Pt will continue IOP tx to prevent decompensation, improve distress tolerance skills, and increase emotion regulation. Narrative Note: []
--- NOTE | 2025-06-19 09:00 | BH.SGPN.GN ---
Addendum entered and electronically signed by Carol Lau 06/25/25 10:40: Reviewed pt's symptom tracker, 3/5 with 5 being severe for suicidal ideation. Indicates a 0/5 for intent to kill self, does not appear to be imminent risk to harm self or others. Original Note: Behaviors/Verbalizations/Mental Status: [] Pt alert and oriented, neatly dressed and groomed. Eye contact good. Motor activity appropriate. Speech within normal limits. Affect congruent, mood anxious. Thoughts linear, logical, no signs of hallucinations or delusions. Reviewed pt?s symptom tracker, Pt indicated 3/5 risk of suicidal ideation with 5 being severe, indicated 0/5 risk for intent to kill self. Does not appear to be imminent risk to harm self or others. 06/19/25. Client Response/Progress/Benefit: []Pt was an active participant in group discussions. Attentive. Per patients daily symptom tracker, pt indicates a 4/5 for depression, with a 5 being severe, and a 3/5 for anxiety. Pt's mental health positives were stated as being excited to finish IOP. Pt reflected on her time in IOP and shared helpful advice for those who were new to the group. Pt's other positive was being able to see her and move back into their apartment. Her stressor was her driving test that she has to retake. Pt expressed worry at having to retake the test, stating that she was over thinking, despite doing mostly well the first time. Pt seemed to benefit from support from peers. Will end IOP services on 06/20/25.
--- NOTE | 2025-06-19 10:10 | BH.SGPN.GN ---
Behaviors/Verbalizations/Mental Status: [] Client alert and oriented, casually dressed and groomed. Eye contact good. Motor activity appropriate. Speech within normal limits. Affect congruent, mood euthymic Thoughts linear, logical, no signs of hallucinations or delusions. Client Response/Progress/Benefit: [] Client responded well to session AEB taking notes throughout and listening attentively to others. Client was attentive throughout group activity identifying famous individuals and how they overcame failure to be successful. Client helped group identify how fear of failure can impact mental health and relationships. Client participated in experiential activity, working with group members to problem solve. Appeared to benefit from increased knowledge of fear of failure. Will continue IOP tx to increase functioning and overall self-worth. Narrative Note: []
--- NOTE | 2025-06-19 11:10 | BH.SGPN.GN ---
Behaviors/Verbalizations/Mental Status: [] Client alert and oriented, casually dressed and groomed. Eye contact good. Motor activity appropriate. Speech within normal limits. Affect constricted, mood euthymic. Thoughts linear, logical, no signs of hallucinations or delusions. Client Response/Progress/Benefit: [] Client responded well to session, engaged in the experiential activity and attentive throughout group processing. Client reported fear of failure has kept client from going to college. Client completed fear of failure worksheet and was able to identify thoughts and behaviors that reinforce personal fear of failure including fear of disappointing others. Client participated in small group discussion regarding strategies to overcome fear of failure. Identified wanting to work on putting things into perspective. Appeared to benefit from increased knowledge of strategies to combat fear of failure and gaining self-awareness. Client will continue IOP tx to promote gains in reduced depressive symptoms and increase overall functioning. Narrative Note: []
--- NOTE | 2025-06-20 09:05 | BH.SGPN.GN ---
Behaviors/Verbalizations/Mental Status: [] Eye contact is good. Motor activity is appropriate. Appearance is casual. Speech is Appropriate. Mood is euthymic. Affect is full. Thoughts are linear and logical. No evidence of psychosis. Reviewed daily check in sheet and no reports of suicidal ideations or intent. Client Response/Progress/Benefit: [] Pt was an active participant in group discussions. Attentive. Shared with the group that today is her last day in [facility] and is set to discharge successfully. Able to identify mental health wins and healthy habits. Reached out to support outside of her and family. Insight that friendships are very important for her overall quality of life. She is both excited and nervous about upcoming stressors and opportunities. Set to retake her driving license exam tomorrow (has never gotten license) and is proud of herself for overcoming this obstacle in her life. She summarized her progress throughout [facility] and from her perspective the program was very beneficial to her. Set to return to living with her in [facility]. Slighty nervous about decompensation after leaving her parents and IOP however is hopeful. Progress noted benefited from group support, encouragment, and feedback. Will be discharged from [facility] today. Narrative Note: []
--- NOTE | 2025-06-20 10:15 | BH.SGPN.GN ---
Behaviors/Verbalizations/Mental Status: [] Eye contact is good. Motor activity is appropriate. Appearance is casual. Speech is Appropriate. Mood is content. Affect is congruent. Thoughts are linear and logical. No evidence of psychosis. Client Response/Progress/Benefit: [] Client engaged during group session as evidenced by contributions during group discussions, appearing to listen to others, and taking notes. Client engaged in discussion about barriers that keep people from having difficult conversations. Group identified potential reasons individuals avoid difficult conversations which included; feeling uncomfortable, reaction of others, fear, and avoiding conflict. Group also identified benefits to having crucial conversations. Pt identified things they do that impact their communication as making assumptions or shutting down. Client seemed to benefit from increased awareness and education about importance of having difficult conversations and recognizing the impact of avoiding such conversations. Client to d/c and continue outpatient tx to maintain gains and prevent decompensation. Narrative Note: []
--- NOTE | 2025-06-21 13:56 | BH.DS ---
Discharge Summary Demographics Date of Admission:: 05/01/25 Discharge Date: 06/21/25 Presenting Problems at Admission:: Princess is a 20y/o female who presented to [facility] program for further evaluation and treatment of MDD and MELANIE. She was referred to IOP by her parents due to decompensation of her mental health over the past several months that has begun to impact her functioning. Parents had concern for isolation, loss of energy, excessive sleep with no motivation and depressed mood. Patient's is also concerned. Reportedly dropped out of college in 2022 and is struggled since that time and has not felt stable enough to return to college or maintain employment Discharge Diagnoses:: Major Depressive Disorder; Anxiety Disoder, unspecified Reason for Discharge:: Pt has accomplished their tx goals AEB overall reduction of DMS-5 symptoms, self-report of improved functioning and mood, and improved outlook. Pt no longer meets criteria for IOP level of care and will discharge to outpatient counseling. Treatment Progress During Treatment & Response: Pt has responded well to treatment as evidenced by Pt consistently attending IOP sessions and reduction of DSM-5 scores since admission. Pt was attentive and receptive to learning during group and individual sessions. Pt improved their ability to apply coping skills outside of IOP and reports overall mood has improved and they are functioning better than several months ago. Pt?s overall symptom reduction is 31% since admission with anger decreasing by 67%, depression decreasing by 25%, feeling disconnected decreasing by 50%, and anxiety decreasing by 22%. Pt has increased self-compassion and faced many hard things. Most importantly, Pt has become more assertive, willing to communicate boundaries, and confident in their abilities. Pt will follow up with PCP for medication management and Linh Andrade at [facility] for individual counseling. Issues Still to be Addressed:: Pt can continue to improve distress tolerance skills, self-confidence, self-compassion, and thought challenging skills. Pt also wants to explore different job opportunities and she can benefit from continuing to gain social support. Pt also recommended couples counseling. Discharge Recommendations/Instructions:: Pt will follow up with her outpatient therapist at [facility] for individual counseling. Pt reports they would like to continue with their PCP for medication management. Pt was encouraged to engage in [facility] aftercare group, but pt wants to clarify this will work with her schedule before committing. Discharge Handout
== END 2025-06-20 12:16 | disposition home or self-care (01) ==
LOC: BHIOP 07:15
PROVIDERS: PCP Family Medicine; Referring Provider Internal Medicine; Visit Provider Internal Medicine
DX: F33.2 Major depressive disorder, recurrent severe without psychotic features (principal)
CPT/HCPCS: S9480; 90832; 90853

== ENCOUNTER 2025-05-31 09:15 | Day surgery (SDC) | payer OTHER, SELFPAY ==
[2025-05-31] VITALS (9 sets, daily range): BP systolic 111–128; BP diastolic 74–94; PULSE 72–104; RESP 16–18; TEMP 36.2–36.6; O2SAT 100; BMI 32.5
--- NOTE | 2025-05-31 09:38 | PCM.HP.STD ---
HPI - General General Date of Admission: 05/31/25 Date of Service: 05/31/25 Chief Complaint: abdominal HPI Narrative PRINCESS SYED, is a 20 F who presents Chief Complaint: Constipation ABD US 10.06.23. No acute sonographic abnormality is demonstrated in the abdomen. 2. Fatty infiltration of the liver. Small bowel x ray 10.06.24 normal HIDA 7.23.24 normal OV 7.30.25 patient was seen by GI clinic in 2021 for issues with constipation and abdominal pain. Biochemical workup revealing elevation in CRP and ESR but no other abnormalities. Since 2021 patient has continued to have constipation and abdominal pain. She has been seen by gynecology for workup regarding PCOS or endometriosis. She is unsure at this time if she has either of these conditions. She does have follow-up appointment with women's care here at [place]. Patient's abdominal pain is near her umbilicus and she describes it as crampy. She does feel it is worse during times of constipation as well as on her period. For her constipation she takes MiraLAX 2 doses daily and magnesium powder. She has a bowel movement 1-2 times per day on this regimen. Patient has had increasing frequency of her nausea. She has it a few times per week and is not related to oral intake. [facility] Medical History Thyroid disease Low iron Easy bruising Back pain Gastric reflux Non-smoker PCOS (polycystic ovarian syndrome) Constipation Dizziness Nausea Fatigue Lower abdominal pain Hx of one miscarriage Depression Anxiety Home Medications ?Medication ?Instructions ?Recorded ?Last Taken ?Type docosahexaenoic acid 200 mg 200 mg PO DAILY 10/01/24 Unknown History capsule ( DHA) desogestrel 0.15 mg-ethinyl 1 tab PO QDAY #84 tabs 03/15/25 Unknown Rx estradiol 0.03 mg tablet (Apri) ascorbic acid (vitamin C) 500 mg 500 mg PO DAILY 04/02/25 Unknown History capsule ferrous sulfate 325 mg (65 mg 325 mg PO QDAY 04/02/25 05/27/25 History iron) tablet (FeroSul) polyethylene glycol 3350 17 4 g PO QDAY 04/02/25 Unknown History gram/dose oral powder (Miralax) dicyclomine 10 mg capsule 10 mg PO BID PRN abdominal pain 04/24/25 Unknown Rx #20 caps duloxetine 20 mg capsule,delayed 40 mg PO QDAY 04/24/25 Unknown History release omeprazole 20 mg capsule,delayed 20 mg PO QDAY #30 caps 04/24/25 Unknown Rx release bupropion HCl 150 mg 24 hr tablet, 150 mg PO DAILY #30 tabs 05/03/25 Unknown Rx extended release (Wellbutrin XL) levothyroxine 50 mcg tablet 50 mcg PO DAILY 05/03/25 Unknown History (Synthroid) Allergy/AdvReac Type Severity Reaction Status Date / Time No Known Allergies Allergy Verified 05/30/25 14:19 Family History Grandmother Breast cancer Aunt Breast cancer Social History Smoking Status: Never smoker alcohol intake: never substance use type: does not use well-balanced diet: other details: vegitarian what type of physical activity do you participate in: none ROS Constitutional Constitutional: Denies fatigue, fever(s), poor appetite, weight gain or weight loss Gastrointestinal Gastrointestinal: Denies belching, bloating, change in bowel habits, change in stool character, chewing difficulty, coffee ground emesis, constipation, cramping, diarrhea, dyspepsia, dysphagia, early satiety, excessive flatus, fecal incontinence, heartburn, hematemesis, hematochezia, hemorrhoids, loose stools, melena, nausea, odynophagia, rectal bleeding, tenesmus, vomiting or weight changes Physical Exam Const alert, oriented x3, no apparent distress and healthy appearing General Appearance: cooperative GI normal to inspection, nondistended, normoactive bowel sounds, soft to palpation, non-tender and non-distended Percussion: normal to percussion Rectal Exam: deferred Assessment & Plan Assessment/Plan (1) Constipation: (2) Abdominal pain: PLAN: Assessment and Plan Assessment and Plan (1) Abdominal pain: (2) Constipation: Status: Chronic Plan: Princess is a 20-year-old female patient here today for reestablishment regarding her ongoing constipation and abdominal pain. Patient was seen previously in the clinic in 2021 and workup was unremarkable besides elevations in her CRP and ESR. Constipation is well-controlled with MiraLAX twice a day and magnesium powder. She has abdominal pain 2 times per week. She has nausea but no vomiting a few times per week. Nausea is not associated with oral intake. Will start her on omeprazole 20 mg daily. Her nausea is not related to eating therefore unclear if it is stemming from her GI tract. Patient's bowel regimen has been working well for her she has tried Linzess Ibsrela and lubiprostone in the past and prefers MiraLAX. She will continue this. I have prescribed dicyclomine as needed for abdominal cramping. I have also prescribed Zofran as needed for nausea. I advise she follow-up with gynecology for further evaluation as there may be for concern for PCOS or endometriosis which may impact her abdominal pain. She was also scheduled for EGD and colonoscopy. - EGD and colonoscopy - Start omeprazole 20 mg daily - Take dicyclomine as needed for abdominal cramping -Continue current bowel regimen - Zofran as needed for nausea - Follow-up with gynecology - Follow-up in 1 month (3) Nausea: Status: Acute Medications: New dicyclomine 10 mg PO BID PRN 20 caps 0RF abdominal pain omeprazole 20 mg PO QDAY 30 caps 2RF ondansetron 4 mg PO Q8H 14 tabs 1RF
[2025-05-31] MEDS: Lactated Ringers 1,000 ML 15 ML IV (10:11)
--- NOTE | 2025-05-31 10:15 | COLBX_PTH ---
PATIENT: RICHAR SYED LOC: EN U#:[id number] AGE/SX: 20/F ROOM: RE05/31/[address]: Dr. Giancarlo Salamanca DO : 2005 BED: DIS: 05/31/2025 SPEC #: [id number] RECD: 05/31/25 12:19 STATUS: OC REAlmaz #: [id number] ARYA: 05/31/25 10:[address]: Giancarlo Salamanca DEPT: SURGICAL PATHOLOGY RECD BY: Wood Campo ENTERED: 05/31/25 15:23 SP TYPE: COLON BX OTHR DR: Dr. Calvin Logan MD Tissues: A - Duodenum, NOS B - Gastric mucous membrane C - Esophagus, NOS D - Ileum, NOS E - COLON BIOPSY Procedures: Immunohistochemical Stains Surgery Specimen Level IV HEADER OPERATION: Colonoscopy with biopsy, EGD with biopsy PRE-OP DIAGNOSIS: Constipation, abdominal pain TISSUE SUBMITTED: A- Duodenum biopsy, B- Gastric body biopsy, C- Distal esophagus biopsy,D- Terminal ileum biopsy, E- Random colon biopsy MICROSCOPIC DIAGNOSIS A. Duodenum, biopsy: - Normal villous morphology with no specific pathologic change. - Negative for increased intraepithelial lymphocytes. B. Gastric body, biopsy: - Oxyntic mucosa with slight chronic inflammation. - IHC negative for H. pylori organisms. C. Distal esophagus, biopsy: - Squamous mucosa with reactive changes and rare eosinophils. - Columnar mucosa with focal goblet cell metaplasia - see note. - Negative for dysplasia. Note: The diagnosis depends on the location of the biopsy and the extent of the mucosal irregularity. If the biopsy originates from the tubular esophagus and the mucosal irregularity extends at least 1 cm above the top of the gastric folds, this represents Coelho mucosa. If the biopsy originates from the gastric cardia and or the mucosal irregularity is less than 1 cm in extent, this represents intestinal metaplasia. D. Terminal ileum, biopsy: - No specific pathologic change. E. Colon, random, biopsy: - No specific pathologic change. - The histologic features of microscopic colitis are not demonstrated. MICROSCOPIC DESCRIPTION Slides are reviewed. All matched controls reacted appropriately. These tests were developed and their performance characteristics determined by [facility]. They may not have been cleared or approved by the U.S. Food and Drug Administration. The FDA has determined that such clearance or approval is not necessary. The above immunohistochemical/dualISH markers are reviewed by the Pathologist. GROSS DESCRIPTION A. Received in fixative is one container labeled with the patient's name and designated Duodenum biopsy. The specimen consists of two irregular fragments of light martinez soft tissue that measure 0.4 and 0.5 cm. The specimen is totally submitted in one cassette. B. Received in fixative is one container labeled with the patient's name and designated Gastric body biopsy. The specimen consists of one irregular fragment of light martinez soft tissue that measures 0.8 cm. The specimen is totally submitted in one cassette. C. Received in fixative is one container labeled with the patient's name and designated Distal esophagus biopsy. The specimen consists of three irregular fragments of light martinez soft tissue that measure 0.1 to 0.3 cm. The specimen is totally submitted in one cassette. D. Received in fixative is one container labeled with the patient's name and designated Terminal ileum biopsy. The specimen consists of one irregular fragment of light martinez soft tissue that measures 0.6 cm. The specimen is totally submitted in one cassette. E. Received in fixative is one container labeled with the patient's name and designated Random colon biopsy. The specimen consists of multiple irregular fragments of light martinez soft tissue that in aggregate measure 1.5 x 0.5 x 0.1 cm. The specimen is totally submitted in one cassette. [place] 05/31/2025 CPT:[id number]
--- NOTE | 2025-05-31 10:18 | PCM.PRE.AN2 ---
ASA Classification* ASA Classification ASA Classification: 2 Assessment & Plan Anesthesia* Anesthesia Assessment Anesthesia Assessment: Discussed sedation and/or anesthesia options, risks, benefits, and alternatives with patient/parents/legal guardian/POA. Questions invited. The patient/parents/legal guardian/POA seems to understand and agrees to proceed with anesthesia plan. Reviewed the physical assessment, medical history, allergy history and patient home medications list prior to surgery/procedure/anesthetic and documented any changes. Performed airway and anesthesia risk assessments. Anesthesia Type Anesthesia Type: MAC History Source History Obtained from:: Patient and Chart Anesthesia Focused Assessment* Temperature: 97.4 F Pulse Rate: 104 Blood Pressure: 120/84 Respiratory Rate: 18 Pulse Ox: 100 Oxygen Delivery Method: Room Air Airway Assessment Mouth opens: >3 cm Mallampati Score: II Teeth Condition: Intact Neck Range of motion (ROM): Full ROM Labs Anesthesia Preop lab: CBC WBC 5.3 K/mm3 (4.4-11.0) 02/15/25 15:18 02/15/25 RBC 4.38 M/mm3 (4.2-5.4) 02/15/25 15:18 02/15/25 Hgb 12.9 g/dL (12.0-15.0) 02/15/25 15:18 02/15/25 Hct 38.6 % (37-47) 02/15/25 15:18 02/15/25 Plt Count 302 K/mm3 (150-450) 02/15/25 15:18 02/15/25 CHEMISTRY Potassium 3.7 mmol/L (3.3-5.1) 02/15/25 15:18 02/15/25 Sodium 138 mmol/L (133-145) 02/15/25 15:18 02/15/25 BUN 6 mg/dL (4-19) 02/15/25 15:18 02/15/25 Creatinine 0.63 mg/dL (0.70-1.20) L 02/15/25 15:18 02/15/25 Glucose 127 mg/dL (70-99) H 02/15/25 15:18 02/15/25 TSH 0.931 uIU/mL (0.500-4.300) 02/15/25 15:18 02/15/25 COAG PT 13.8 SECONDS (11.7-14.9) 02/15/25 15:18 02/15/25 Tst Clinic Negative 08/18/21 14:30 08/18/21 Pre-Assessment Diagnosis/Proposed Procedure Planned Operative Procedure(s): EGD/CSCOPE Anesthesia History Anesthesia History - infusion pharmacist: Anesthesia History - infusion pharmacist Hx Hospitalization No 05/30/25 14:22 Any Problems With Anesthesia No 05/30/25 14:22 Cholinesterase deficiency No 05/30/25 14:22 You/Your Family Experience No 05/30/25 14:22 fever (hyperthermia) with Relationship Recent Exposure to Contagious No 05/31/25 09:48 Disease Does patient have nerve No 05/30/25 14:22 stimulator Patient instructed to have device shut off --Does patient have Pacemaker No 05/31/25 09:48 or ICD? When Was Last Pacemaker Check QUESTION #4 FULL TEXT: You/Your Family Experience fever (hyperthermia) with Anesthesia Last Oral Intake Last Oral intake: Last Oral Intake NPO since 22:30 05/31/25 09:48 Meds taken in AM with sips of No 05/31/25 09:48 water? Meds patient instructed to take am of surgery PONV PONV - infusion pharmacist: PONV - infusion pharmacist Female Yes 05/30/25 14:22 HX of Motion Sickness Yes 05/30/25 14:22 HX of N/V After Surgery No 05/30/25 14:22 Non-Smoker Yes 05/30/25 14:22 Duration of Surgery greater No 05/30/25 14:22 than 60 minutes Number of Risk Factors 3 05/30/25 14:22 PONV Score Moderate Risk 05/30/25 14:22 Height & Weight Height & Weight: Anesthesia: Height & Weight Height 5 ft 9 in 05/31/25 09:48 Weight: 100 kg 05/31/25 09:48 Body Mass Index (BMI) 32.5 05/31/25 09:48 Respiratory Assessment Respiratory Assessment - infusion pharmacist: Respiratory Tract Infection Hx - infusion pharmacist Hx Respiratory Tract Infection No 05/30/25 14:22 STOP Sleep Apnea STOP Sleep Apnea - infusion pharmacist: STOP Sleep Apnea - infusion pharmacist Hx Hypertension No 05/30/25 14:22 Hx Sleep Apnea No 05/30/25 14:22 CPAP BIPAP Do you snore loudly (louder No 05/30/25 14:22 than talking or can be heard Do you often feel tired/ Yes 05/30/25 14:22 fatigued/ sleepy during daytime? Has anyone observed you stop No 05/30/25 14:22 breathing during sleep? STOP Results Negative 05/30/25 14:22 QUESTION #5 FULL TEXT : Do you snore loudly (louder than talking or can be heard through closed doors)? Tobacco Use History Tobacco Use History - infusion pharmacist: Tobacco Use History - infusion pharmacist Tobacco Use Smoking Status Never smoker 05/30/25 14:22 Hx Tobacco Use No 05/30/25 14:22 Years Smoking Packs Smoked per Day Smoking Cessation Date was within the last 15 years Hx Smoking Cessation Date Hx Smoking Cessation Counseling Hematologic Medial History Hematologic Hx - infusion pharmacist: Hematologic Medical Hx - cafe helper Hx of Blood Transfusion No 05/30/25 14:22 Hx of Transfusion in last 3 No 05/30/25 14:22 Months Date of Last Transfusion (if within last 3 months) Ever experience any problems No 05/30/25 14:22 with transfusion(s)? Specify any problems Hx of Preganancy in last 3 No 05/30/25 14:22 Months Nurse Filling Out Transfusion DSCHRIBER 05/30/25 14:22 & Questions: Date: 05/30/25 05/30/25 14:22 Time: 14:23 05/30/25 14:22 Patient unable to answer at this time (ie. confused, unrespo /Reproduction History /Reproductive History - infusion pharmacist: /Reproductive Hx- infusion pharmacist Hx Now No 05/30/25 14:22 Gestational Age (in weeks): EDC: Hx Hx Para Hx Section SAB No 05/30/25 14:22 Active Medications Active Medications: Current Medications Generic Name Dose Route Start Last Admin Trade Name Freq PRN Reason Stop Dose Admin Lactated Ringer's 1,000 mls @ 15 mls/hr 05/31/25 09:30 05/31/25 10:11 IV 15 mls/hr .Q48H ANNETTE Administration PFSH Medical History Thyroid disease Low iron Easy bruising Back pain Gastric reflux Non-smoker PCOS (polycystic ovarian syndrome) Constipation Dizziness Nausea Fatigue Lower abdominal pain Hx of one miscarriage Depression Anxiety Home Medications ?Medication ?Instructions ?Recorded ?Last Taken ?Type docosahexaenoic acid 200 mg 200 mg PO DAILY 10/01/24 05/30/25 History capsule ( DHA) desogestrel 0.15 mg-ethinyl 1 tab PO QDAY #84 tabs 03/15/25 05/30/25 Rx estradiol 0.03 mg tablet (Apri) ascorbic acid (vitamin C) 500 mg 500 mg PO DAILY 04/02/25 05/27/25 History capsule ferrous sulfate 325 mg (65 mg 325 mg PO QDAY 04/02/25 05/27/25 History iron) tablet (FeroSul) polyethylene glycol 3350 17 4 g PO QDAY 04/02/25 05/30/25 History gram/dose oral powder (Miralax) dicyclomine 10 mg capsule 10 mg PO BID PRN abdominal pain 04/24/25 05/30/25 Rx #20 caps duloxetine 20 mg capsule,delayed 40 mg PO QDAY 04/24/25 05/30/25 History release omeprazole 20 mg capsule,delayed 20 mg PO QDAY #30 caps 04/24/25 05/28/25 Rx release bupropion HCl 150 mg 24 hr tablet, 150 mg PO DAILY #30 tabs 05/03/25 05/30/25 Rx extended release (Wellbutrin XL) levothyroxine 50 mcg tablet 50 mcg PO DAILY 05/03/25 05/30/25 History (Synthroid) Allergy/AdvReac Type Severity Reaction Status Date / Time No Known Allergies Allergy Verified 05/31/25 09:45 Family History Grandmother Breast cancer Aunt Breast cancer no surgical history Social History Smoking Status: Never smoker alcohol intake: never substance use type: does not use well-balanced diet: other details: vegitarian what type of physical activity do you participate in: none Review of Systems (Anesthesia) ROS Narrative System reviewed and no additional complaints, except as documented.
--- NOTE | 2025-05-31 11:18 | OP.PROVAT_ITS ---
05/31/2025 Calvin Logan [address] [place] [address] Re : Upper GI endoscopy procedure for [facility] Dear Dr. Logan This procedure was performed on Saturday, May 31, 2025. My impressions and recommendations are as follows: Impressions : - Z-line irregular, 40 cm from the incisors. Biopsied. - Erythematous mucosa in the gastric body. Biopsied. - No gross lesions in the entire examined duodenum. Biopsied. Recommendations : - Discharge patient to home. - Resume previous diet. - Continue present medications. - Await pathology results. My findings are described in the full procedure note, which is enclosed. If I can be of further assistance, please feel free to contact me at . Sincerely, Giancarlo Salamanca, 05/31/2025 11:18:14 AM This report has been signed electronically.
--- NOTE | 2025-05-31 11:18 | OP.EGD_ITS ---
Patient Name: Princess Smith Procedure Date: 05/31/2025 10:35 AM Date of : 2005 Age: 20 Procedure: Upper GI endoscopy Indications: Epigastric abdominal pain, Abdominal pain in the left upper quadrant, Functional Dyspepsia Providers: Giancarlo Salamanca DO Referring MD: Calvin Logan Medicines: Monitored Anesthesia Care Patient Profile: This is a 20 year old female. Refer to note in patient chart for documentation of history and physical. Patient has symptoms of chronic abdominal cramping, chronic abdominal distention, chronic epigastric abdominal pain, chronic dyspepsia and chronic nausea. Complications: No immediate complications. Procedure: Pre-Anesthesia Assessment: - Prior to the procedure, a History and Physical was performed, and patient medications and allergies were reviewed. The patient is competent. The risks and benefits of the procedure and the sedation options and risks were discussed with the patient. All questions were answered and informed consent was obtained. Patient identification and proposed procedure were verified by the physician in the pre-procedure area. Mental Status Examination: alert and oriented. Airway Examination: normal oropharyngeal airway and neck mobility. Respiratory Examination: clear to auscultation. CV Examination: normal. Prophylactic Antibiotics: The patient does not require prophylactic antibiotics. Prior Anticoagulants: The patient has taken no anticoagulant or antiplatelet agents except for NSAID medication. ASA Grade Assessment: II - A patient with mild systemic disease. After reviewing the risks and benefits, the patient was deemed in satisfactory condition to undergo the procedure. The anesthesia plan was to use monitored anesthesia care (MAC). Immediately prior to administration of medications, the patient was re-assessed for adequacy to receive sedatives. The heart rate, respiratory rate, oxygen saturations, blood pressure, adequacy of pulmonary ventilation, and response to care were monitored throughout the procedure. The physical status of the patient was re-assessed after the procedure. After obtaining informed consent, the endoscope was passed under direct vision. Throughout the procedure, the patient's blood pressure, pulse, and oxygen saturations were monitored continuously. The colonoscope was introduced through the mouth, and advanced to the fourth part of the duodenum. Small bowel enteroscopy was deemed necessary. The upper GI endoscopy was accomplished without difficulty. The patient tolerated the procedure well. Scope In: 10:47:22 AM Scope Out: 10:52:24 AM Total Procedure Duration Time 0 hours 5 minutes 2 seconds Findings: The Z-line was irregular and was found 40 cm from the incisors. Biopsies were taken with a cold forceps for histology. Patchy mildly erythematous mucosa without bleeding was found in the gastric body. Biopsies were taken with a cold forceps for histology. Biopsies were taken with a cold forceps for Helicobacter pylori testing. Verification of patient identification for the specimen was done. Estimated blood loss was minimal. No gross lesions were noted in the entire examined duodenum. Biopsies were taken with a cold forceps for histology. Verification of patient identification for the specimen was done. Estimated blood loss was minimal. Impression: - Z-line irregular, 40 cm from the incisors. Biopsied. - Erythematous mucosa in the gastric body. Biopsied. - No gross lesions in the entire examined duodenum. Biopsied. Recommendation: - Discharge patient to home. - Resume previous diet. - Continue present medications. - Await pathology results. Procedure Code(s): --- Professional --- 75401, Small intestinal endoscopy, enteroscopy beyond second portion of duodenum, not including ileum; with biopsy, single or multiple CPT copyright 2021 [employer]. All rights reserved. The codes documented in this report are preliminary and upon net programmer analyst review may be revised to meet current compliance requirements. Giancarlo Salamanca DO 05/31/2025 11:18:14 AM This report has been signed electronically. Number of Addenda: 0 Note Initiated On: 05/31/2025 10:35 AM
--- NOTE | 2025-05-31 11:18 | PCM.POST.ANE ---
Anesthesia: Postop Eval I Current Vital Signs Temperature: 97.1 F Pulse Rate: 74 Blood Pressure: 111/74 Respiratory Rate: 16 Pulse Ox: 100 Oxygen Delivery Method: Room Air Assessment Airway patent: Yes Spontaneous unlabored respirations: Yes Mental status: Asleep nausea: No Vomiting: No Anesthesia Complication: No Fluid Hydration Crystalloid volume administer (ml): 700 Total IV fluid infused: 700 Progress Note Anesthesia document: Postop Eval 1 completed: Yes
--- NOTE | 2025-05-31 11:21 | OP.COLON_ITS ---
Patient Name: Princess Smith Procedure Date: 05/31/2025 10:52 AM Date of : 2005 Age: 20 Procedure: Colonoscopy Indications: Chronic diarrhea Providers: Giancarlo Salamanca DO Referring MD: Calvin Logan Medicines: Monitored Anesthesia Care Patient Profile: This is a 20 year old female. Refer to note in patient chart for documentation of history and physical. Patient has symptoms of chronic abdominal cramping, chronic abdominal distention, chronic epigastric abdominal pain, chronic dyspepsia and chronic nausea. Last Colonoscopy: none. The patient's first colonoscopy is today. Complications: No immediate complications. Procedure: Pre-Anesthesia Assessment: - Prior to the procedure, a History and Physical was performed, and patient medications and allergies were reviewed. The patient is competent. The risks and benefits of the procedure and the sedation options and risks were discussed with the patient. All questions were answered and informed consent was obtained. Patient identification and proposed procedure were verified by the physician in the pre-procedure area. Mental Status Examination: alert and oriented. Airway Examination: normal oropharyngeal airway and neck mobility. Respiratory Examination: clear to auscultation. CV Examination: normal. Prophylactic Antibiotics: The patient does not require prophylactic antibiotics. Prior Anticoagulants: The patient has taken no anticoagulant or antiplatelet agents except for NSAID medication. ASA Grade Assessment: II - A patient with mild systemic disease. After reviewing the risks and benefits, the patient was deemed in satisfactory condition to undergo the procedure. The anesthesia plan was to use monitored anesthesia care (MAC). Immediately prior to administration of medications, the patient was re-assessed for adequacy to receive sedatives. The heart rate, respiratory rate, oxygen saturations, blood pressure, adequacy of pulmonary ventilation, and response to care were monitored throughout the procedure. The physical status of the patient was re-assessed after the procedure. After I obtained informed consent, the scope was passed under direct vision. Throughout the procedure, the patient's blood pressure, pulse, and oxygen saturations were monitored continuously. The colonoscope was introduced through the anus and advanced to the terminal ileum. The colonoscopy was performed without difficulty. The patient tolerated the procedure well. The quality of the bowel preparation was adequate. The terminal ileum, ileocecal valve, appendiceal orifice, and rectum were photographed. Scope In: 10:53:54 AM Scope Withdrawal Time 0 hours 8 minutes 46 seconds Scope Out: 11:07:24 AM Total Procedure Duration Time 0 hours 13 minutes 30 seconds Findings: The perianal and digital rectal examinations were normal. A patchy area of mildly erythematous mucosa was found in the sigmoid colon, at the hepatic flexure and in the ascending colon. A patchy area of mucosa in the terminal ileum was mildly erythematous. Biopsies were taken with a cold forceps for histology. Verification of patient identification for the specimen was done. Estimated blood loss was minimal. Impression: - Erythematous mucosa in the sigmoid colon, at the hepatic flexure and in the ascending colon. - Erythematous mucosa in the terminal ileum. Biopsied. Recommendation: - Discharge patient to home. - Resume previous diet. - Continue present medications. - Await pathology results. - Repeat colonoscopy at appointment to be scheduled for surveillance based on pathology results. Procedure Code(s): --- Professional --- 30676, Colonoscopy, flexible; with biopsy, single or multiple CPT copyright 2021 [employer]. All rights reserved. The codes documented in this report are preliminary and upon supervisor microbiology technologists review may be revised to meet current compliance requirements. Giancarlo Salamanca DO 05/31/2025 11:21:24 AM This report has been signed electronically. Number of Addenda: 0 Note Initiated On: 05/31/2025 10:52 AM
--- NOTE | 2025-05-31 11:21 | OP.PROVAT_ITS ---
05/31/2025 Calvin Logan [address] [place] [address] Re : Colonoscopy procedure for Princess [facility] Dear Dr. Logan This procedure was performed on Saturday, May 31, 2025. My impressions and recommendations are as follows: Impressions : - Erythematous mucosa in the sigmoid colon, at the hepatic flexure and in the ascending colon. - Erythematous mucosa in the terminal ileum. Biopsied. Recommendations : - Discharge patient to home. - Resume previous diet. - Continue present medications. - Await pathology results. - Repeat colonoscopy at appointment to be scheduled for surveillance based on pathology results. My findings are described in the full procedure note, which is enclosed. If I can be of further assistance, please feel free to contact me at . Sincerely, Giancarlo Salamanca, 05/31/2025 11:21:24 AM This report has been signed electronically.
--- NOTE | 2025-05-31 14:28 | PCM.POSTANE2 ---
Anesthesia Postop Eval I Sum Postop Eval Completion status Anesthesia document: Postop Eval 1 completed: Yes Anesthesia Postop Eval I Summary Anesthesia Postop Eval I Summary: Anesthesia Postop Eval I: Assessment Summary Airway patent Yes 05/31/25 11:19 [email or web address] Spontaneous unlabored Yes 05/31/25 11:19 [email or web address] respirations Mental status Asleep 05/31/25 11:19 [email or web address] nausea No 05/31/25 11:19 [email or web address] Vomiting No 05/31/25 11:19 [email or web address] Anesthesia Postop Eval I: Fluid Summary Crystalloid volume administer 700 05/31/25 11:19 [email or web address] (ml) Colloids volume administered ( ml) Blood Product volume administered (ml) Total IV fluid infused 700 05/31/25 11:19 [email or web address] Anesthesia Postop Eval I: Summary Notes Anesthesia Complication No 05/31/25 11:19 [email or web address] Anesthesia Complication Comment: Post-operative progress note Anesthesia: Postop Eval II Evaluation Mental status: Awake and Calm Pain Level: 0 nausea: No Vomiting: No Complications Anesthesia Complication: No
== END 2025-05-31 12:07 | disposition home or self-care (01) ==
LOC: EN 09:18 → AC 09:24
PROVIDERS: PCP Family Medicine; Referring Provider Family Medicine; Visit Provider Internal Medicine Gastroenterology
PROC: 0DJD8ZZ Inspection of Lower Intestinal Tract, Via Natural or Artificial Opening Endoscopic (ICD-10-PCS; CPT 45378; principal; 2025-05-31 10:10)
DX: K22.70 Barrett's esophagus without dysplasia (principal); K59.00 Constipation, unspecified; K29.50 Unspecified chronic gastritis without bleeding; K21.9 Gastro-esophageal reflux disease without esophagitis; K76.0 Fatty (change of) liver, not elsewhere classified; E07.9 Disorder of thyroid, unspecified; Z79.890 Hormone replacement therapy; Z79.899 Other long term (current) drug therapy
CPT/HCPCS: 44361; 45380; 88305; 88342; J2405